=== PATIENT | male | born 1970 | race Caucasian/White ===

== ENCOUNTER 2017-12-20 15:52 | Emergency (ER) | payer MEDICAID ==
[2017-12-20] MEDS ORDERED: Sodium Chloride 0.9% 10 ML Syringe FLUSH PRN (16:15)
[2017-12-20] MEDS ORDERED: Aspirin 81 MG Tab.Chew PO ONE (16:15)
--- NOTE | 2017-12-20 16:28 | EDM.PDOC ---
ED HPI GENERAL MEDICAL PROBLEM - General Chief Complaint: Cardiovascular Problem Stated Complaint: PAIN IN CHEST Time Seen by Provider: 12/20/17 16:03 Source of Information: Reports: Patient, Family History Limitations: Reports: No Limitations - History of Present Illness INITIAL COMMENTS - FREE TEXT/NARRATIVE: 47-year-old male presents for evaluation treatment of chest pain. Patient reports pain has been intermittent for the last 3 weeks. No pain currently. He reports associated symptoms of shortness of breath. No nausea or vomiting. No pain radiating to his neck, back or arms. Reports pain is most often present while sitting and resting but is present with activity as well. Reports he is on limited activity due to his TBI. Patient has a past medical history of a TBI. Has difficulty staying on task and answer questions. He reports that he has had significant pain with headaches and is currently trying to get into [place] for problems with his chronic headaches. Patient reports a fell about 2 or 3 weeks ago. He has been having pain to his right foot and his right hand. He would like these evaluated. Primary care provider is Dr. Acosta. Patient smokes 1/2 a pack per day. Duration: Week(s): (3) - Related Data Allergies Allergy/AdvReac Type Severity Reaction Status Date / Time celecoxib Allergy Hives Verified 12/20/17 16:21 gabapentin Allergy Seizure Verified 12/20/17 16:21 insect venom Allergy Hives Verified 12/20/17 16:21 NSAIDS (Non-Steroidal Allergy Hives Verified 12/20/17 16:21 Anti-Inflamma Penicillins Allergy Hives Verified 12/20/17 16:21 pregabalin [From Lyrica] Allergy Hives Verified 12/20/17 16:21 tramadol Allergy Hives Verified 12/20/17 16:21 zolpidem Allergy Hives Verified 12/20/17 16:21 Home Meds: Home Meds ClonazePAM [KlonoPIN] 1 mg PO TID 12/19/14 [History] Ondansetron [Zofran] 4 mg PO Q6HR PRN 12/19/14 [History] Eszopiclone [Lunesta] 3 mg PO BEDTIME 09/30/15 [History] Pantoprazole Sodium [Protonix] 40 mg PO BID #60 tablet. 05/04/16 [Rx] Sucralfate [Carafate] 1 gm PO QIDACANDBED #120 tablet 05/04/16 [Rx] Carvedilol 6.25 mg PO BID 12/20/17 [History] DULoxetine [Cymbalta] 60 mg PO DAILY 12/20/17 [History] Diclofenac Sodium [Voltaren 0.1% Ophth Soln] 2 - 4 gm TOP QID PRN 12/20/17 [ History] Fluticasone Furoate [Arnuity Ellipta] 1 spray NINOSKA BID 12/20/17 [History] Polyethylene Glycol [Polyox Wsr-301] 1 dose PO DAILY 12/20/17 [History] atorvaSTATin [Lipitor] 20 mg PO DAILY 12/20/17 [History] carBAMazepine [TEGretol XR] 400 mg PO BID 12/20/17 [History] lamoTRIgine [Lamotrigine] 150 mg PO BID 12/20/17 [History] Past Medical History HEENT History: Reports: Allergic Rhinitis, Other (See Below) Other HEENT History: abcessed tooth Cardiovascular History: Reports: Heart Murmur Respiratory History: Reports: Other (See Below) Other Respiratory History: bilateral pleural effusions Gastrointestinal History: Reports: Other (See Below) Other Gastrointestinal History: rectal bleeding, gastric ulcer, tubular adenoma , splenic abcess, LUQ pain Genitourinary History: Reports: None Other Genitourinary History: urinary frequency 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 Musculoskeletal History: Reports: Other (See Below) Other Musculoskeletal History: wrist pain, degenerative TFCC tear, Right upper extremity ulnar neuropathy Neurological History: Reports: Brain Injury, Concussion, CVA, Head Trauma, Seizure Psychiatric History: Reports: Anxiety, Depression Endocrine/Metabolic History: Reports: Other (See Below) Other Endocrine/Metabolic History: metabolic syndrome Hematologic History: Reports: Anemia, Iron Deficiency Immunologic History: Reports: None Oncologic (Cancer) History: Reports: None Dermatologic History: Reports: None - Past Surgical History Head Surgeries/Procedures: Reports: None HEENT Surgical History: Reports: Adenoidectomy, LASIK, Oral Surgery, Tonsillectomy Respiratory Surgical History: Reports: Thoracentesis, Thoracotomy, Other (See Below) GI Surgical History: Reports: Bariatric Procedure, Colonoscopy, EGD, Hernia Repair/Other Social & Family History - Tobacco Use Smoking Status *Q: Current Every Day Smoker Years of Tobacco use: 30 Packs/Tins Daily: 0.5 - Caffeine Use Caffeine Use: Reports: Soda, Tea - Recreational Drug Use Recreational Drug Use: No ED ROS GENERAL - Review of Systems Review Of Systems: See Below Constitutional: Reports: Weight Gain (unintentional per mother, gained 40-50 lbs since starting a new heart medication). Denies: Fever, Chills Respiratory: Reports: Shortness of Breath (non currently) Cardiovascular: Reports: Chest Pain (none currently, intermittent over the last 3 weeks) GI/Abdominal: Denies: Nausea, Vomiting Musculoskeletal: Reports: Hand Pain (right), Foot Pain (right) Neurological: Reports: Headache (chronic) ED EXAM, GENERAL - Physical Exam Exam: See Below Exam Limited By: No Limitations General Appearance: Alert, WD/WN, No Apparent Distress Nose: Normal Inspection Throat/Mouth: Normal Inspection, Normal Voice, No Airway Compromise Neck: Normal Inspection Respiratory/Chest: No Respiratory Distress, Lungs Clear, Normal Breath Sounds Cardiovascular: Normal Peripheral Pulses, Regular Rate, Rhythm, No Murmur Neurological: Alert, Oriented, Normal Cognition Psychiatric: Other (tangental) Skin Exam: Warm, Dry, Normal Color EKG INTERPRETATION EKG Date: 12/20/17 Time: 15:40 Rhythm: NSR Rate (Beats/Min): 61 [place]: Normal P-Wave: Present QRS: Normal ST-T: Normal QT: Normal EKG Interpretation Comments: Normal sinus rhythm at 61 bpm. No ischemic changes, but early R-wave progression. No left axis deviation. No left ventricular hypertrophy. No interventricular conduction delays. QTc within normal limits a QTc of 421. Reviewed by myself and Dr. Rojas. Course - Vital Signs Last Recorded V/S: Last Vital Signs Temp 98 F 12/20/17 15:58 Pulse 65 12/20/17 18:15 Resp 17 12/20/17 18:15 BP 143/100 H 12/20/17 18:15 Pulse Ox 96 12/20/17 18:15 - Orders/Labs/Meds Orders: Active Orders 24 hr Category Date Time Status Cardiac Monitoring [RC] . DIRECTED Care 12/20/17 16:15 Active EKG 12 Lead [EKG Documentation Completion] [RC] STAT Care 12/20/17 16:12 Active Peripheral IV Care [RC] . DIRECTED Care 12/20/17 16:15 Active Peripheral IV Insertion Adult [OM.PC] Routine Oth 12/20/17 16:15 Ordered Labs: Laboratory Tests 12/20/17 12/20/17 12/20/17 Range/Units 16:30 16:30 16:30 WBC 6.98 (4.23-9.07) K/mm3 RBC 4.39 L (4.63-6.08) M/mm3 Hgb 13.2 L (13.7-17.5) gm/L Hct 39.2 L (40.1-51.0) % MCV 89.3 (79.0-92.2) fl MCH 30.1 (25.7-32.2) pg MCHC 33.7 (32.2-35.5) g/dl RDW Std Deviation 40.5 (35.1-43.9) fL Plt Count 292 (163-337) K/mm3 MPV 9.1 L (9.4-12.3) fl Neut % (Auto) 55.7 (34.0-67.9) % Lymph % (Auto) 31.4 (21.8-53.1) % [place] % (Auto) 8.9 (5.3-12.2) % Eos % (Auto) 3.6 (0.8-7.0) Baso % (Auto) 0.3 (0.1-1.2) % Neut # (Auto) 3.89 (1.78-5.38) K/mm3 Lymph # (Auto) 2.19 (1.32-3.57) K/mm3 [place] # (Auto) 0.62 (0.30-0.82) K/mm3 Eos # (Auto) 0.25 (0.04-0.54) K/mm3 Baso # (Auto) 0.02 (0.01-0.08) K/mm3 PT 12.6 H (9.5-12.1) SECONDS INR 1.16 APTT 27 (24-31) SECONDS D-Dimer, Quantitative 0.23 (0.19-0.50) mg/L Sodium 138 (136-145) mEq/L Potassium 3.2 L (3.5-5.1) mEq/L Chloride 103 (98-107) mEq/L Carbon Dioxide 28 (21-32) mEq/L Anion Gap 10.2 (5-15) BUN 8 (7-18) mg/dL Creatinine 0.8 (0.7-1.3) mg/dL Est Cr Clr Drug Dosing TNP Estimated GFR (MDRD) > 60 (>60) mL/min BUN/Creatinine Ratio 10.0 L (14-18) Glucose 93 (74-106) mg/dL Calcium 8.3 L (8.5-10.1) mg/dL Total Bilirubin 0.2 (0.2-1.0) mg/dL AST 13 L (15-37) U/L ALT 16 (16-63) U/L Alkaline Phosphatase 67 (46-116) U/L CK-MB (CK-2) 0.7 (0-3.6) ng/ml Troponin I < 0.017 (0.00-0.056) ng/mL Total Protein 6.9 (6.4-8.2) g/dl Albumin 3.7 (3.4-5.0) g/dl Globulin 3.2 gm/dL Albumin/Globulin Ratio 1.2 (1-2) Meds: Medications Discontinued Medications Generic Name Dose Route Start Last Admin Trade Name Freq PRN Reason Stop Dose Admin Aspirin 324 mg 12/20/17 16:15 12/20/17 16:32 Aspirin PO 12/20/17 16:16 324 mg ONETIME ONE Administration Sodium Chloride 10 ml 12/20/17 16:15 12/20/17 16:33 Saline Flush FLUSH 10 ml ASDIRECTED PRN Administration Keep Vein Open - Radiology Interpretation Free Text/Narrative:: Right hand: 4 views of the right hand were obtained. Comparison: No prior hand study. Joint spaces are preserved. No fracture, dislocation or other bony abnormality is seen. Impression: 1. No abnormality is appreciated on 4 view right hand exam. Right foot: 4 views of the right foot were obtained. Comparison: No prior right foot study. No fracture, dislocation or other bony abnormality is seen. Impression: 1. No abnormality is identified on right foot exam. Chest: 2 views of the chest are obtained. Comparison: Prior chest x-ray of 09/30/15. Atelectasis is noted within the left base. Lungs otherwise are clear. Heart size and mediastinum are within normal limits. Slight tortuosity of the thoracic aorta is seen. Bony structures appear within normal limits for the patient's age. Impression: 1. Incidental findings. Nothing acute is appreciated. - Re-Assessments/Exams Free Text/Narrative Re-Assessment/Exam: 12/20/17 18:05 Reviewed the labs, EKG and imaging with the patient. He has had no pain since coming to the ER. I do recommend follow-up with his primary care provider within 2 weeks for recheck of his symptoms. Discharge instructions as documented. Departure - Departure Time of Disposition: 18:05 Disposition: Home, Self-Care 01 Condition: Fair Clinical Impression: Chest wall pain, Foot pain, right, Fall, Thumb sprain Instructions: Chest Wall Pain, [id number] Referrals: Dioni Acosta MD [Primary Care Provider] - Forms: ED Department Discharge Additional Instructions: [id number] Tylenol as needed for discomfort. May use ice or heat to the sore areas for additional pain relief. Follow up with her primary care provider within 2 weeks for recheck of your symptoms. Please return to the ER if your symptoms change or worsen. - My Orders Last 24 Hours: My Active Orders 12/20/17 16:12 EKG 12 Lead [EKG Documentation Completion] [RC] STAT 12/20/17 16:15 Cardiac Monitoring [RC] . DIRECTED Peripheral IV Care [RC] . DIRECTED Peripheral IV Insertion Adult [OM.PC] Routine - Assessment/Plan Last 24 Hours: My Active Orders 12/20/17 16:12 EKG 12 Lead [EKG Documentation Completion] [RC] STAT 12/20/17 16:15 Cardiac Monitoring [RC] . DIRECTED Peripheral IV Care [RC] . DIRECTED Peripheral IV Insertion Adult [OM.PC] Routine
[2017-12-20 18:24] VITALS: BP 143/100
--- NOTE | 2017-12-21 08:41 | CR ---
Chest: Two views of the chest are obtained. Comparison: Prior chest x-ray of 09/30/15. Atelectasis is noted within the left base. Lungs otherwise are clear. Heart size and mediastinum are within normal limits. Slight tortuosity of the thoracic aorta is seen. Bony structures appear within normal limits for the patient's age. Impression: 1. Incidental findings. Nothing acute is appreciated. Diagnostic code #2
--- NOTE | 2017-12-21 08:41 | CR ---
Right hand: Four views of the right hand were obtained. Comparison: No prior hand study. Joint spaces are preserved. No fracture, dislocation or other bony abnormality is seen. Impression: 1. No abnormality is appreciated on four-view right hand exam. Diagnostic code #1
--- NOTE | 2017-12-21 08:41 | CR ---
Right foot: Four views of the right foot were obtained. Comparison: No prior right foot study. No fracture, dislocation or other bony abnormality is seen. Impression: 1. No abnormality is identified on right foot exam. Diagnostic code #1
== END 2017-12-20 18:20 | disposition home or self-care (01) ==
LOC: JD.ED 15:52
DX: S63.601A Unspecified sprain of right thumb, initial encounter (principal); R07.89 Other chest pain; M79.671 Pain in right foot; F17.210 Nicotine dependence, cigarettes, uncomplicated; Z88.0 Allergy status to penicillin; Z88.8 Allergy status to other drugs, medicaments and biological substances; Z88.1 Allergy status to other antibiotic agents; W19.XXXA Unspecified fall, initial encounter
CPT/HCPCS: 36415; 71046; 73130; 73630; 80053; 82553; 84484; 85025; 85379; 85610; 85730; 93005; 99285; A9270; J7050

== ENCOUNTER 2018-05-23 05:11 | Inpatient (IN) | payer MEDICARE, OTHER, MEDICAID ==
[2018-05-23] MEDS ORDERED: Sodium Chloride 0.9% 10 ML Syringe FLUSH PRN (05:46)
[2018-05-23] MEDS ORDERED: Ondansetron 4 MG/2 ML SDV IVPUSH ONE (05:47)
[2018-05-23] MEDS ORDERED: HYDROmorphone 1 MG/ML Syringe IVPUSH ONE ×3 (05:47→10:46)
[2018-05-23] MEDS ORDERED: Sodium Chloride 0.9% 1,000 ML IV SCH (06:00)
--- NOTE | 2018-05-23 06:20 | EDM.PDOC ---
<Brian Parada Ifeanyi - Last Filed: 05/23/18 08:19> ED HPI GENERAL MEDICAL PROBLEM - General Chief Complaint: Flank Pain Stated Complaint: kidney stone Time Seen by Provider: 05/23/18 05:37 Source of Information: Reports: Patient, RN Notes Reviewed - History of Present Illness INITIAL COMMENTS - FREE TEXT/NARRATIVE: 47-year-old male comes in with low back discomfort he states this is primarily right low back with some radiation to the right flank and groin. So has had some discomfort left low back but not as severe. Said intermittent nausea and vomiting for the past 4 days. The nausea is worse now this morning with the back discomfort. Dates he "feels dehydrated". His been voiding only very small amounts since last evening. No fever or chills. No cough chest pain or difficulty breathing. Right Lower Back Pain Score (Numeric/FACES): 8 - Related Data Allergies Allergy/AdvReac Type Severity Reaction Status Date / Time celecoxib Allergy Hives Verified 05/23/18 05:25 insect venom Allergy Hives Verified 05/23/18 05:25 NSAIDS (Non-Steroidal Allergy Hives Verified 05/23/18 05:25 Anti-Inflamma Penicillins Allergy Hives Verified 05/23/18 05:25 pregabalin [From Lyrica] Allergy Hives Verified 05/23/18 05:25 tramadol Allergy Hives Verified 05/23/18 05:25 zolpidem Allergy Hives Verified 05/23/18 05:25 gabapentin AdvReac Seizure Verified 05/23/18 12:35 Home Meds: Home Meds Eszopiclone [Lunesta] 3 mg PO BEDTIME 09/30/15 [History] Pantoprazole Sodium [Protonix] 40 mg PO BID #60 tablet. 05/04/16 [Rx] Carvedilol 6.25 mg PO BID 12/20/17 [History] DULoxetine [Cymbalta] 60 mg PO QAM 12/20/17 [History] atorvaSTATin [Lipitor] 20 mg PO DAILY 12/20/17 [History] carBAMazepine [TEGretol XR] 400 mg PO BID 12/20/17 [History] lamoTRIgine [Lamotrigine] 100 mg PO BID 12/20/17 [History] Sucralfate [Carafate] 1 gm PO QID 01/20/18 [History] acetaZOLAMIDE [Acetazolamide] 375 mg PO BID 01/20/18 [History] DULoxetine [Cymbalta] 30 mg PO QPM 05/23/18 [History] busPIRone [Buspar] 10 mg PO BID 05/23/18 [History] Past Medical History HEENT History: Reports: Allergic Rhinitis, Other (See Below) Other HEENT History: abcessed tooth Cardiovascular History: Reports: Heart Murmur Respiratory History: Reports: Other (See Below) Other Respiratory History: bilateral pleural effusions Gastrointestinal History: Reports: Other (See Below) Other Gastrointestinal History: rectal bleeding, gastric ulcer, tubular adenoma , splenic abcess, LUQ pain Genitourinary History: Reports: None Other Genitourinary History: urinary frequency 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 Musculoskeletal History: Reports: Other (See Below) Other Musculoskeletal History: wrist pain, degenerative TFCC tear, Right upper extremity ulnar neuropathy Neurological History: Reports: Brain Injury, Concussion, CVA, Head Trauma, Seizure Psychiatric History: Reports: Anxiety, Depression Endocrine/Metabolic History: Reports: Other (See Below) Other Endocrine/Metabolic History: metabolic syndrome Hematologic History: Reports: Anemia, Iron Deficiency Immunologic History: Reports: None Oncologic (Cancer) History: Reports: None Dermatologic History: Reports: None - Past Surgical History Head Surgeries/Procedures: Reports: None HEENT Surgical History: Reports: Adenoidectomy, LASIK, Oral Surgery, Tonsillectomy Respiratory Surgical History: Reports: Thoracentesis, Thoracotomy, Other (See Below) GI Surgical History: Reports: Bariatric Procedure, Colonoscopy, EGD, Hernia Repair/Other Social & Family History - Family History Family Medical History: Noncontributory - Tobacco Use Smoking Status *Q: Current Every Day Smoker Years of Tobacco use: 25 Packs/Tins Daily: 0.7 - Caffeine Use Caffeine Use: Reports: Soda - Recreational Drug Use Recreational Drug Use: No ED ROS GENERAL - Review of Systems Review Of Systems: See Below Constitutional: Denies: Fever, Chills, Diaphoresis HEENT: Denies: Throat Pain Respiratory: Denies: Shortness of Breath, Pleuritic Chest Pain Cardiovascular: Denies: Chest Pain GI/Abdominal: Reports: Nausea, Vomiting. Denies: Abdominal Pain, Diarrhea : Denies: Hematuria Musculoskeletal: Reports: Back Pain Skin: Denies: Rash Neurological: Reports: No Symptoms ED EXAM,LOWER BACK PAIN/INJURY - Physical Exam Exam: See Below General Appearance: Alert, Moderate Distress Eye Exam: Bilateral Eye: PERRL Throat/Mouth: Normal Inspection, Other (Oral mucosa is dry) Head: Atraumatic Neck: Supple, Full Range of Motion Respiratory/Chest: No Respiratory Distress, Lungs Clear, Normal Breath Sounds Cardiovascular: Regular Rate, Rhythm GI/Abdominal: Soft, Non-Tender Back Exam: Other (There is mild tenderness right low back, back otherwise nontender). No: Vertebral Tenderness Extremities: Normal Inspection. No: Pedal Edema, Leg Pain Neurological: Alert, No Motor/Sensory Deficits Skin Exam: Warm, Dry, Normal Color Course - Vital Signs Last Recorded V/S: Last Vital Signs Temp 36.1 C 05/23/18 05:21 Pulse 64 05/23/18 05:21 Resp 16 05/23/18 05:21 BP 111/64 05/23/18 05:21 Pulse Ox 97 05/23/18 05:21 - Orders/Labs/Meds Orders: Active Orders 24 hr Category Date Time Status Patient Status [ADT] Routine ADT 05/23/18 11:51 Active Antiembolic Devices [RC] PER UNIT ROUTINE Care 05/23/18 11:53 Active Intake and Output [RC] QSHIFT Care 05/23/18 11:52 Active Oxygen Therapy [RC] PRN Care 05/23/18 11:51 Active Peripheral IV Care [RC] . DIRECTED Care 05/23/18 05:47 Active Up ad Deneen [RC] ASDIRECTED Care 05/23/18 11:51 Active VTE/DVT Education [RC] PER UNIT ROUTINE Care 05/23/18 11:51 Active Vital Signs [RC] Q4H Care 05/23/18 11:51 Active Nothing per Oral Now Diet [DIET] Diet 05/23/18 Lunch Active Carvedilol [Coreg] Med 05/23/18 21:00 Pending 6.25 mg PO BID DULoxetine Med 05/24/18 08:00 Ordered 60 mg PO QAM DULoxetine [Cymbalta] Med 05/23/18 18:00 Ordered 30 mg PO QPM HYDROmorphone [Dilaudid] Med 05/23/18 11:53 Active 0.2 - 0.6 mg IVPUSH Q2H PRN Ondansetron [Zofran] Med 05/23/18 11:58 Active 4 mg IVPUSH Q8H PRN Pantoprazole [ProTONIX] Med 05/23/18 21:00 Active 40 mg PO BID Piperacillin/Tazobactam [Piperacil-Tazobact] 4.5 gm Med 05/23/18 11:00 Active Sodium Chloride 0.9% [Normal Saline] 100 ml IV Q8H Sodium Chloride 0.9% [Saline Flush] Med 05/23/18 05:46 Active 10 ml FLUSH ASDIRECTED PRN carBAMazepine Med 05/23/18 21:00 Ordered 400 mg PO BID lamoTRIgine [Lamotrigine] Med 05/23/18 21:00 Ordered 100 mg PO BID Peripheral IV Insertion Adult [OM.PC] Stat Oth 05/23/18 05:47 Ordered Sequential Compression Device [OM.PC] Per Unit Routine Oth 05/23/18 11:52 Ordered Resuscitation Status Routine Resus Stat 05/23/18 11:51 Ordered Medication Orders Carvedilol (Coreg) 6.25 mg PO BID DAVID Duloxetine HCl (Cymbalta) 30 mg PO QPM DAVID Hydromorphone HCl (Dilaudid) 0.2 - 0.6 mg IVPUSH Q2H PRN PRN Reason: Pain Piperacillin Sod/Tazobactam (Sod 4.5 gm/ Sodium Chloride) 100 mls @ 25 mls/hr IV Q8H DAVID Last Admin: 05/23/18 11:21 Dose: 25 mls/hr Non-Formulary Medication (Carbamazepine) 400 mg PO BID DAVID Non-Formulary Medication (Duloxetine) 60 mg PO QAM DAVID Non-Formulary Medication (Lamotrigine [Lamotrigine]) 100 mg PO BID DAVID Ondansetron HCl (Zofran) 4 mg IVPUSH Q8H PRN PRN Reason: Nausea Pantoprazole Sodium (Protonix) 40 mg PO BID DAVID Sodium Chloride (Saline Flush) 10 ml FLUSH ASDIRECTED PRN PRN Reason: Keep Vein Open Last Admin: 05/23/18 06:25 Dose: 10 ml Labs: Laboratory Tests 05/23/18 05/23/18 05/23/18 Range/Units 06:35 06:35 06:39 WBC 17.59 H (4.23-9.07) K/mm3 RBC 4.33 L (4.63-6.08) M/mm3 Hgb 13.4 L (13.7-17.5) gm/L Hct 39.5 L (40.1-51.0) % MCV 91.2 (79.0-92.2) fl MCH 30.9 (25.7-32.2) pg MCHC 33.9 (32.2-35.5) g/dl RDW Std Deviation 43.0 (35.1-43.9) fL Plt Count 231 (163-337) K/mm3 MPV 9.1 L (9.4-12.3) fl Neut % (Auto) 84.1 H (34.0-67.9) % Lymph % (Auto) 3.5 L (21.8-53.1) % Granite % (Auto) 12.0 (5.3-12.2) % Eos % (Auto) 0 L (0.8-7.0) Baso % (Auto) 0.1 (0.1-1.2) % Neut # (Auto) 14.79 H (1.78-5.38) K/mm3 Lymph # (Auto) 0.62 L (1.32-3.57) K/mm3 Granite # (Auto) 2.11 H (0.30-0.82) K/mm3 Eos # (Auto) 0.00 L (0.04-0.54) K/mm3 Baso # (Auto) 0.01 (0.01-0.08) K/mm3 Manual Slide Review Abnormal smear Sodium (136-145) mEq/L Potassium (3.5-5.1) mEq/L Chloride (98-107) mEq/L Carbon Dioxide (21-32) mEq/L Anion Gap (5-15) BUN (7-18) mg/dL Creatinine (0.7-1.3) mg/dL Est Cr Clr Drug Dosing mL/min Estimated GFR (MDRD) (>60) mL/min BUN/Creatinine Ratio (14-18) Glucose (74-106) mg/dL Calcium (8.5-10.1) mg/dL Total Bilirubin (0.2-1.0) mg/dL GGT 89 H (15-85) U/L AST (15-37) U/L ALT (16-63) U/L Alkaline Phosphatase (46-116) U/L C-Reactive Protein 4.1 H* (<1.0) mg/dL Total Protein (6.4-8.2) g/dl Albumin (3.4-5.0) g/dl Globulin gm/dL Albumin/Globulin Ratio (1-2) Urine Color (Yellow) Urine Appearance (Clear) Urine pH (5.0-8.0) Ur Specific [place] (1.005-1.030) Urine Protein (Negative) Urine Glucose (UA) (Negative) Urine Ketones (Negative) Urine Occult Blood (Negative) Urine Nitrite (Negative) Urine Bilirubin (Negative) Urine Urobilinogen (0.2-1.0) Ur Leukocyte Esterase (Negative) Urine RBC (0-5) /hpf Urine WBC (0-5) /hpf Ur Epithelial Cells (0-5) /hpf Ur Squamous Epith Cells (0-5) /hpf Urine Bacteria (FEW) /hpf Urine Mucus (FEW) /hpf 05/23/18 05/23/18 Range/Units 06:39 07:55 WBC (4.23-9.07) K/mm3 RBC (4.63-6.08) M/mm3 Hgb (13.7-17.5) gm/L Hct (40.1-51.0) % MCV (79.0-92.2) fl MCH (25.7-32.2) pg MCHC (32.2-35.5) g/dl RDW Std Deviation (35.1-43.9) fL Plt Count (163-337) K/mm3 MPV (9.4-12.3) fl Neut % (Auto) (34.0-67.9) % Lymph % (Auto) (21.8-53.1) % Granite % (Auto) (5.3-12.2) % Eos % (Auto) (0.8-7.0) Baso % (Auto) (0.1-1.2) % Neut # (Auto) (1.78-5.38) K/mm3 Lymph # (Auto) (1.32-3.57) K/mm3 Granite # (Auto) (0.30-0.82) K/mm3 Eos # (Auto) (0.04-0.54) K/mm3 Baso # (Auto) (0.01-0.08) K/mm3 Manual Slide Review Sodium 139 (136-145) mEq/L Potassium 2.8 L (3.5-5.1) mEq/L Chloride 104 (98-107) mEq/L Carbon Dioxide 21 (21-32) mEq/L Anion Gap 16.8 H (5-15) BUN 12 (7-18) mg/dL Creatinine 1.1 (0.7-1.3) mg/dL Est Cr Clr Drug Dosing 93.08 mL/min Estimated GFR (MDRD) > 60 (>60) mL/min BUN/Creatinine Ratio 10.9 L (14-18) Glucose 151 H (74-106) mg/dL Calcium 8.3 L (8.5-10.1) mg/dL Total Bilirubin 0.4 (0.2-1.0) mg/dL GGT (15-85) U/L AST 8 L (15-37) U/L ALT 12 L (16-63) U/L Alkaline Phosphatase 68 (46-116) U/L C-Reactive Protein (<1.0) mg/dL Total Protein 7.1 (6.4-8.2) g/dl Albumin 3.7 (3.4-5.0) g/dl Globulin 3.4 gm/dL Albumin/Globulin Ratio 1.1 (1-2) Urine Color Yellow (Yellow) Urine Appearance Clear (Clear) Urine pH 6.0 (5.0-8.0) Ur Specific [place] 1.025 (1.005-1.030) Urine Protein 2+ H (Negative) Urine Glucose (UA) Negative (Negative) Urine Ketones Trace H (Negative) Urine Occult Blood Negative (Negative) Urine Nitrite Negative (Negative) Urine Bilirubin 1+ H (Negative) Urine Urobilinogen 0.2 (0.2-1.0) Ur Leukocyte Esterase Negative (Negative) Urine RBC Not seen (0-5) /hpf Urine WBC Not seen (0-5) /hpf Ur Epithelial Cells Not seen (0-5) /hpf Ur Squamous Epith Cells 0-5 (0-5) /hpf Urine Bacteria Not seen (FEW) /hpf Urine Mucus Not seen (FEW) /hpf Meds: Medications Generic Name Dose Route Start Last Admin Trade Name Freq PRN Reason Stop Dose Admin Carvedilol 6.25 mg 05/23/18 21:00 Coreg PO BID DAVID Duloxetine HCl 30 mg 05/23/18 18:00 Cymbalta PO QPM DAVID Hydromorphone HCl 0.2 - 0.6 mg 05/23/18 11:53 Dilaudid IVPUSH Q2H PRN Pain Piperacillin Sod/Tazobactam 100 mls @ 25 mls/hr 05/23/18 11:00 05/23/18 11:21 Sod 4.5 gm/ Sodium Chloride IV 25 mls/hr Q8H DAVID Administration Non-Formulary Medication 400 mg 05/23/18 21:00 Carbamazepine PO BID DAVID Non-Formulary Medication 60 mg 05/24/18 08:00 Duloxetine PO QAM DAVID Non-Formulary Medication 100 mg 05/23/18 21:00 Lamotrigine [Lamotrigine] PO BID DAVID Ondansetron HCl 4 mg 05/23/18 11:58 Zofran IVPUSH Q8H PRN Nausea Pantoprazole Sodium 40 mg 05/23/18 21:00 Protonix PO BID DAVID Sodium Chloride 10 ml 05/23/18 05:46 05/23/18 06:25 Saline Flush FLUSH 10 ml ASDIRECTED PRN Administration Keep Vein Open Discontinued Medications Generic Name Dose Route Start Last Admin Trade Name Shun PRN Reason Stop Dose Admin Hydromorphone HCl 1 mg 05/23/18 05:47 05/23/18 06:21 Dilaudid IVPUSH 05/23/18 05:48 1 mg ONETIME ONE Administration Hydromorphone HCl 1 mg 05/23/18 08:00 05/23/18 08:43 Dilaudid IVPUSH 05/23/18 08:01 1 mg ONETIME ONE Administration Hydromorphone HCl 1 mg 05/23/18 10:46 05/23/18 10:57 Dilaudid IVPUSH 05/23/18 10:47 1 mg ONETIME ONE Administration Sodium Chloride 1,000 mls @ 999 mls/hr 05/23/18 06:00 05/23/18 06:23 Normal Saline IV 999 mls/hr ONETIME DAVID Administration Potassium Chloride 10 meq/ 100 mls @ 50 mls/hr 05/23/18 07:20 05/23/18 07:29 Premix IV 05/23/18 09:19 50 mls/hr ASDIRECTED ONE Administration Levofloxacin/Dextrose 750 mg/ 150 mls @ 100 mls/hr 05/23/18 10:47 05/23/18 11 :03 Premix IV 05/23/18 12:16 100 mls/hr ONETIME ONE Administration Potassium Chloride 10 meq/ 100 mls @ 100 mls/hr 05/23/18 11:08 05/23/18 11:19 Premix IV 05/23/18 12:07 100 mls/hr ONETIME ONE Administration Piperacillin Sod/Tazobactam 100 mls @ 25 mls/hr 05/23/18 19:00 Sod 4.5 gm/ Sodium Chloride IV Q8H DAVID Metoclopramide HCl 10 mg 05/23/18 10:46 05/23/18 10:54 Reglan IVPUSH 05/23/18 10:47 10 mg ONETIME ONE Administration Ondansetron HCl 4 mg 05/23/18 05:47 05/23/18 06:20 Zofran IVPUSH 05/23/18 05:48 4 mg ONETIME ONE Administration - Re-Assessments/Exams Free Text/Narrative Re-Assessment/Exam: 05/23/18 08:05 1 hr past change of shift, will transfer care to Dr Alcaraz. He did get good initial relief of pain after dilaudid 1 mg IV and zofran 4 mg IV. Now his back pain is coming back but also RUQ pain which he did not talk about on first arrival. He is very tender RUQ with a pos. [place] sign. He thought his nausea/vomiting was related to his prior gastric bypass but may well have GB disease. Have ordered ultrasound of gallbladder. The CT of abd/ pelvis does not show any sign of kidney stone, kidney problem or hydronephrosis. GB mildly dilated, wall slightly edematous. His last meal was last evening over 12 hours ago Departure - Departure Disposition: Admitted As Inpatient 68 Clinical Impression: Acute cholecystitis, Hypokalemia due to loss of potassium, Hypokalemia due to inadequate potassium intake Nausea and vomiting Qualifiers: Vomiting type: bilious vomiting Qualified Code(s): R11.14 - Bilious vomiting - Discharge Information Instructions: Cholecystitis, [id number] Referrals: Dioni Acosta MD [Primary Care Provider] - Forms: ED Department Discharge - My Orders Last 24 Hours: My Active Orders 05/23/18 11:00 Piperacillin/Tazobactam [Piperacil-Tazobact] 4.5 gm Sodium Chloride 0.9% [ Normal Saline] 100 ml IV Q8H - Assessment/Plan Last 24 Hours: My Active Orders 05/23/18 11:00 Piperacillin/Tazobactam [Piperacil-Tazobact] 4.5 gm Sodium Chloride 0.9% [ Normal Saline] 100 ml IV Q8H <Deon Alcaraz - Last Filed: 05/23/18 12:41> Course - Re-Assessments/Exams Free Text/Narrative Re-Assessment/Exam: 05/23/18 09:04 GGT came back at 89. CRP is slightly elevated at 4.1. 05/23/18 10:57 ultrasound of the gallbladder shows slightly dilated gallbladder with gallbladder wall thickening and mild pericholecystic fluid compatible with acute cholecystitis. Material is seen within the gallbladder showing no shadowing presumably due to sludge ball. No shadowing gallstones are identified. No biliary duct dilatation is seen findings as noted above are suggestive of acute acalculous cholecystitis. I spoke with Dr. 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 He asked that we start the patient on antibiotic Zosyn. Patient has a history of an allergy to penicillin apparently he developed hives greater than 12 years ago. However on further questioning he's been on amoxicillin on multiple occasions for dental infections since that time with no allergic response. Therefore will go ahead with IV Zosyn at this time. Patient is significant pain on reexamination right upper quadrant of the abdomen I will therefore repeat Dilaudid 1 mg IV with Reglan 10 mg IV for nausea relief. He will also require a second K rider and I will write an order for this as well. Departure - Departure Time of Disposition: 12:41 Condition: Fair - Discharge Information *PRESCRIPTION DRUG MONITORING PROGRAM REVIEWED*: Not Applicable *COPY OF PRESCRIPTION DRUG MONITORING REPORT IN PATIENT LES: Not Applicable - My Orders Last 24 Hours: My Active Orders 05/23/18 11:00 Piperacillin/Tazobactam [Piperacil-Tazobact] 4.5 gm Sodium Chloride 0.9% [ Normal Saline] 100 ml IV Q8H - Assessment/Plan Last 24 Hours: My Active Orders 05/23/18 11:00 Piperacillin/Tazobactam [Piperacil-Tazobact] 4.5 gm Sodium Chloride 0.9% [ Normal Saline] 100 ml IV Q8H
[2018-05-23] MEDS ORDERED: Potassium Chloride 10 MEQ in Premix Bag 1 BAG IV ONE ×2 (07:20→11:08)
--- NOTE | 2018-05-23 08:13 | CT ---
CT abdomen and pelvis Technique: Multiple axial sections were obtained from above the dome of the diaphragm inferiorly through the pubic symphysis. Intravenous and oral contrast not utilized. Study has been performed as a ureteral stone protocol. Comparison: Prior CT abdomen and pelvis exam of 10/26/11. Findings: Gallbladder is slightly dilated. Possible gallbladder wall edema is noted. No calcified gallstones are seen. Kidneys show no abnormal calcifications. No ureteral dilatation or ureteral stone is seen. Slight atelectasis and scarring is noted within both lung bases. Noncontrast appearance of the liver and spleen shows no discrete abnormality. Previous stomach surgery is noted. Adrenal glands show no nodule. Pancreas appears within normal limits. Aorta shows no aneurysm. Previous small bowel surgery is noted with anastomotic sutures being seen within the right upper abdomen. No retroperitoneal adenopathy or mesenteric abnormalities are seen. Several surgical clips are seen within the anterior abdominal wall and several surgical clips also seen within the anterior subcutaneous fat. No pelvic mass or adenopathy is seen. No free fluid or inflammatory change is seen. Bone window settings were reviewed which appear within normal limits for the patient's age. Impression: 1. Slightly dilated gallbladder with possible gallbladder wall edema. Gallbladder ultrasound could be obtained to further evaluate. 2. No renal calculi, ureteral dilatation or ureteral stone is seen. 3. Evidence of previous abdominal surgery. Other incidental findings. Diagnostic code #3
[2018-05-23] MEDS ORDERED: Metoclopramide 10 MG/2 ML SDV IVPUSH ONE (10:46)
[2018-05-23] MEDS ORDERED: Levofloxacin/Dextrose 5%-Water 750 MG in Premix Bag 1 BAG IV ONE (10:47)
--- NOTE | 2018-05-23 10:54 | US ---
Limited abdominal ultrasound: Multiple real-time images of the upper right abdomen were obtained. Comparison: Previous CT abdomen and pelvis exam performed earlier on the same day (7:33 AM). Liver shows no focal abnormality. Gallbladder is somewhat dilated. Gallbladder wall is thickened with mild amount of pericholecystic fluid. Sludge ball appears to be present within the gallbladder. No shadowing gallstones are seen. Right kidney shows no hydronephrosis or mass. Right kidney is length 12.7 cm. No biliary duct dilatation is seen. Pancreas is obscured from bowel gas. Portal vein shows normal hepatopedal flow. Impression: 1. Slightly dilated gallbladder with gallbladder wall thickening and mild pericholecystic fluid. Material is seen within the gallbladder showing no shadowing presumably due to sludge ball. No shadowing gallstones are seen. No biliary duct dilatation is seen. Findings as noted above could represent acalculous cholecystitis. 2. Nonvisualized pancreas due to bowel gas. Other portions of the right upper quadrant abdominal ultrasound are unremarkable. Diagnostic code #3
[2018-05-23] MEDS: Piperacillin/Tazobactam 4.5 GM in Sodium Chloride 0.9% 100 ML IV SCH ×2 (11:21→18:03)
--- NOTE | 2018-05-23 11:50 | PCM.HP ---
H&P History of Present Illness - General Date of Service: 05/23/18 Source of Information: Patient, Family - History of Present Illness Initial Comments - Free Text/Narative: 47 yo male, presented to the ED with worsening RUQ abdominal, which radiated to his back. Patient notes the pain started last night, and has gotten progressively worse, associated with nausea. No association with food. No prior episodes of pain. Denies acholic stools, tea-colored urine, and yellowing of skin/eyes. Patient's mother was present with the patient, who helped also provide patient' s history. Right Lower Back Pain Score (Numeric/FACES): 8 Right Abdominal Pain Score (Numeric/FACES): 8 - Related Data Allergies/Adverse Reactions: Allergies Allergy/AdvReac Type Severity Reaction Status Date / Time celecoxib Allergy Hives Verified 05/23/18 05:25 insect venom Allergy Hives Verified 05/23/18 05:25 NSAIDS (Non-Steroidal Allergy Hives Verified 05/23/18 05:25 Anti-Inflamma Penicillins Allergy Hives Verified 05/23/18 05:25 pregabalin [From Lyrica] Allergy Hives Verified 05/23/18 05:25 tramadol Allergy Hives Verified 05/23/18 05:25 zolpidem Allergy Hives Verified 05/23/18 05:25 gabapentin AdvReac Seizure Verified 05/23/18 12:35 Home Medications: Home Meds Eszopiclone [Lunesta] 3 mg PO BEDTIME 09/30/15 [History] Pantoprazole Sodium [Protonix] 40 mg PO BID #60 tablet. 05/04/16 [Rx] Carvedilol 6.25 mg PO BIDMEALS 12/20/17 [History] DULoxetine [Cymbalta] 60 mg PO QAM 12/20/17 [History] atorvaSTATin [Lipitor] 20 mg PO DAILY 12/20/17 [History] carBAMazepine [TEGretol XR] 400 mg PO BID 12/20/17 [History] lamoTRIgine [Lamotrigine] 150 mg PO BID 12/20/17 [History] Sucralfate [Carafate] 1 gm PO QIDACANDBED 01/20/18 [History] acetaZOLAMIDE [Acetazolamide] 375 mg PO BID 01/20/18 [History] Acetaminophen [Tylenol] 325 mg PO Q6H PRN 05/23/18 [History] DULoxetine [Cymbalta] 30 mg PO QPM 05/23/18 [History] Diclofenac Sodium [Voltaren 1% Gel] 2 - 4 gm TOP QID PRN 05/23/18 [History] EPINEPHrine [Epipen 2-Sharath] 1 pen IM ASDIRECTED PRN 05/23/18 [History] Fluticasone Propionate [Flonase] 1 spray NASBOTH BID 05/23/18 [History] Ondansetron [Zofran] 4 mg PO Q6H PRN 05/23/18 [History] Polyethylene Glycol 3350 [MiraLAX] 1 tbsp PO DAILY PRN 05/23/18 [History] busPIRone [Buspar] 10 mg PO BID 05/23/18 [History] Past Medical History HEENT History: Reports: Allergic Rhinitis, Other (See Below) Other HEENT History: abcessed tooth Cardiovascular History: Reports: Heart Murmur Respiratory History: Reports: Other (See Below) Other Respiratory History: bilateral pleural effusions Gastrointestinal History: Reports: Other (See Below) Other Gastrointestinal History: rectal bleeding, gastric ulcer, tubular adenoma , splenic abcess, LUQ pain Genitourinary History: Reports: None Other Genitourinary History: urinary frequency [employer] WORK[employer] History: Reports: None Musculoskeletal History: Reports: Other (See Below) Other Musculoskeletal History: wrist pain, degenerative TFCC tear, Right upper extremity ulnar neuropathy Neurological History: Reports: Brain Injury, Concussion, CVA, Head Trauma, Seizure Psychiatric History: Reports: Anxiety, Depression Endocrine/Metabolic History: Reports: Other (See Below) Other Endocrine/Metabolic History: metabolic syndrome Hematologic History: Reports: Anemia, Iron Deficiency Immunologic History: Reports: None Oncologic (Cancer) History: Reports: None Dermatologic History: Reports: None - Past Surgical History Head Surgeries/Procedures: Reports: None HEENT Surgical History: Reports: Adenoidectomy, LASIK, Oral Surgery, Tonsillectomy Respiratory Surgical History: Reports: Thoracentesis, Thoracotomy, Other (See Below) GI Surgical History: Reports: Bariatric Procedure (Gastric bypass (performed 15 years ago)), Colonoscopy, EGD (Last EGD in 2017 identified a marginal ulcer), Hernia Repair/Other - History Comment History Comment: History of TBI in 2016, on anti-seizure medication. Social & Family History - Family History Family Medical History: Noncontributory - Tobacco Use Smoking Status *Q: Current Every Day Smoker Years of Tobacco use: 25 Packs/Tins Daily: 0.7 - Caffeine Use Caffeine Use: Reports: Soda - Recreational Drug Use Recreational Drug Use: No H&P Review of Systems - Review of Systems: Review Of Systems: ROS reveals no pertinent complaints other than HPI. Exam - Exam Exam: See Below - Vital Signs Vital Signs: Last Vital Signs Temp 36.1 C 05/23/18 05:21 Pulse 64 05/23/18 05:21 Resp 16 05/23/18 05:21 BP 111/64 05/23/18 05:21 Pulse Ox 97 05/23/18 05:21 Weight: 108.862 kg - Exam General: Alert, Oriented, Cooperative HEENT: Conjunctiva Clear. No: Scleral Icterus Neck: Supple Lungs: Clear to Auscultation, Normal Respiratory Effort Cardiovascular: Regular Rate, Regular Rhythm, Normal S1, Normal S2 GI/Abdominal Exam: Soft, Tender (RUQ), Other (Fritz's sign negative) Skin: Warm, Dry, Intact, Other (No jaundice) Neuro Extensive - Mental Status: Alert, Oriented x3, Normal Mood/Affect - Patient Data Lab Results Last 24 hrs: Laboratory Results - last 24 hr 05/23/18 05/23/18 05/23/18 Range/Units 06:35 06:35 06:39 WBC 17.59 H (4.23-9.07) K/mm3 RBC 4.33 L (4.63-6.08) M/mm3 Hgb 13.4 L (13.7-17.5) gm/L Hct 39.5 L (40.1-51.0) % MCV 91.2 (79.0-92.2) fl MCH 30.9 (25.7-32.2) pg MCHC 33.9 (32.2-35.5) g/dl RDW Std Deviation 43.0 (35.1-43.9) fL Plt Count 231 (163-337) K/mm3 MPV 9.1 L (9.4-12.3) fl Neut % (Auto) 84.1 H (34.0-67.9) % Lymph % (Auto) 3.5 L (21.8-53.1) % Craig % (Auto) 12.0 (5.3-12.2) % Eos % (Auto) 0 L (0.8-7.0) Baso % (Auto) 0.1 (0.1-1.2) % Neut # (Auto) 14.79 H (1.78-5.38) K/mm3 Lymph # (Auto) 0.62 L (1.32-3.57) K/mm3 Craig # (Auto) 2.11 H (0.30-0.82) K/mm3 Eos # (Auto) 0.00 L (0.04-0.54) K/mm3 Baso # (Auto) 0.01 (0.01-0.08) K/mm3 Manual Slide Review Abnormal smear Sodium (136-145) mEq/L Potassium (3.5-5.1) mEq/L Chloride (98-107) mEq/L Carbon Dioxide (21-32) mEq/L Anion Gap (5-15) BUN (7-18) mg/dL Creatinine (0.7-1.3) mg/dL Est Cr Clr Drug Dosing mL/min Estimated GFR (MDRD) (>60) mL/min BUN/Creatinine Ratio (14-18) Glucose (74-106) mg/dL Calcium (8.5-10.1) mg/dL Total Bilirubin (0.2-1.0) mg/dL GGT 89 H (15-85) U/L AST (15-37) U/L ALT (16-63) U/L Alkaline Phosphatase (46-116) U/L C-Reactive Protein 4.1 H* (<1.0) mg/dL Total Protein (6.4-8.2) g/dl Albumin (3.4-5.0) g/dl Globulin gm/dL Albumin/Globulin Ratio (1-2) Urine Color (Yellow) Urine Appearance (Clear) Urine pH (5.0-8.0) Ur Specific [place] (1.005-1.030) Urine Protein (Negative) Urine Glucose (UA) (Negative) Urine Ketones (Negative) Urine Occult Blood (Negative) Urine Nitrite (Negative) Urine Bilirubin (Negative) Urine Urobilinogen (0.2-1.0) Ur Leukocyte Esterase (Negative) Urine RBC (0-5) /hpf Urine WBC (0-5) /hpf Ur Epithelial Cells (0-5) /hpf Ur Squamous Epith Cells (0-5) /hpf Urine Bacteria (FEW) /hpf Urine Mucus (FEW) /hpf 05/23/18 05/23/18 Range/Units 06:39 07:55 WBC (4.23-9.07) K/mm3 RBC (4.63-6.08) M/mm3 Hgb (13.7-17.5) gm/L Hct (40.1-51.0) % MCV (79.0-92.2) fl MCH (25.7-32.2) pg MCHC (32.2-35.5) g/dl RDW Std Deviation (35.1-43.9) fL Plt Count (163-337) K/mm3 MPV (9.4-12.3) fl Neut % (Auto) (34.0-67.9) % Lymph % (Auto) (21.8-53.1) % Craig % (Auto) (5.3-12.2) % Eos % (Auto) (0.8-7.0) Baso % (Auto) (0.1-1.2) % Neut # (Auto) (1.78-5.38) K/mm3 Lymph # (Auto) (1.32-3.57) K/mm3 Craig # (Auto) (0.30-0.82) K/mm3 Eos # (Auto) (0.04-0.54) K/mm3 Baso # (Auto) (0.01-0.08) K/mm3 Manual Slide Review Sodium 139 (136-145) mEq/L Potassium 2.8 L (3.5-5.1) mEq/L Chloride 104 (98-107) mEq/L Carbon Dioxide 21 (21-32) mEq/L Anion Gap 16.8 H (5-15) BUN 12 (7-18) mg/dL Creatinine 1.1 (0.7-1.3) mg/dL Est Cr Clr Drug Dosing 93.08 mL/min Estimated GFR (MDRD) > 60 (>60) mL/min BUN/Creatinine Ratio 10.9 L (14-18) Glucose 151 H (74-106) mg/dL Calcium 8.3 L (8.5-10.1) mg/dL Total Bilirubin 0.4 (0.2-1.0) mg/dL GGT (15-85) U/L AST 8 L (15-37) U/L ALT 12 L (16-63) U/L Alkaline Phosphatase 68 (46-116) U/L C-Reactive Protein (<1.0) mg/dL Total Protein 7.1 (6.4-8.2) g/dl Albumin 3.7 (3.4-5.0) g/dl Globulin 3.4 gm/dL Albumin/Globulin Ratio 1.1 (1-2) Urine Color Yellow (Yellow) Urine Appearance Clear (Clear) Urine pH 6.0 (5.0-8.0) Ur Specific [place] 1.025 (1.005-1.030) Urine Protein 2+ H (Negative) Urine Glucose (UA) Negative (Negative) Urine Ketones Trace H (Negative) Urine Occult Blood Negative (Negative) Urine Nitrite Negative (Negative) Urine Bilirubin 1+ H (Negative) Urine Urobilinogen 0.2 (0.2-1.0) Ur Leukocyte Esterase Negative (Negative) Urine RBC Not seen (0-5) /hpf Urine WBC Not seen (0-5) /hpf Ur Epithelial Cells Not seen (0-5) /hpf Ur Squamous Epith Cells 0-5 (0-5) /hpf Urine Bacteria Not seen (FEW) /hpf Urine Mucus Not seen (FEW) /hpf Result Diagrams: 05/23/18 06:39 05/23/18 06:39 Imaging Impressions Last 24 hrs: Limited abdominal ultrasound: Multiple real-time images of the upper right abdomen were obtained. Comparison: Previous CT abdomen and pelvis exam performed earlier on the same day (7:33 AM). Liver shows no focal abnormality. Gallbladder is somewhat dilated. Gallbladder wall is thickened with mild amount of pericholecystic fluid. Sludge ball appears to be present within the gallbladder. No shadowing gallstones are seen. Right kidney shows no hydronephrosis or mass. Right kidney is length 12.7 cm. No biliary duct dilatation is seen. Pancreas is obscured from bowel gas. Portal vein shows normal hepatopedal flow. Impression: 1. Slightly dilated gallbladder with gallbladder wall thickening and mild pericholecystic fluid. Material is seen within the gallbladder showing no shadowing presumably due to sludge ball. No shadowing gallstones are seen. No biliary duct dilatation is seen. Findings as noted above could represent acalculous cholecystitis. 2. Nonvisualized pancreas due to bowel gas. Other portions of the right upper quadrant abdominal ultrasound are unremarkable. Diagnostic code #3 Dictated by: Mark Anthony Canela MD 05/23/[address] abdomen and pelvis Technique: Multiple axial sections were obtained from above the dome of the diaphragm inferiorly through the pubic symphysis. Intravenous and oral contrast not utilized. Study has been performed as a ureteral stone protocol. Comparison: Prior CT abdomen and pelvis exam of 10/26/11. Findings: Gallbladder is slightly dilated. Possible gallbladder wall edema is noted. No calcified gallstones are seen. Kidneys show no abnormal calcifications. No ureteral dilatation or ureteral stone is seen. Slight atelectasis and scarring is noted within both lung bases. Noncontrast appearance of the liver and spleen shows no discrete abnormality. Previous stomach surgery is noted. Adrenal glands show no nodule. Pancreas appears within normal limits. Aorta shows no aneurysm. Previous small bowel surgery is noted with anastomotic sutures being seen within the right upper abdomen. No retroperitoneal adenopathy or mesenteric abnormalities are seen. Several surgical clips are seen within the anterior abdominal wall and several surgical clips also seen within the anterior subcutaneous fat. No pelvic mass or adenopathy is seen. No free fluid or inflammatory change is seen. Bone window settings were reviewed which appear within normal limits for the patient's age. Impression: 1. Slightly dilated gallbladder with possible gallbladder wall edema. Gallbladder ultrasound could be obtained to further evaluate. 2. No renal calculi, ureteral dilatation or ureteral stone is seen. 3. Evidence of previous abdominal surgery. Other incidental findings. Diagnostic code #3 Dictated by: Mark Anthony Canela MD 05/23/18 at 0811 - Problem List (1) Acute cholecystitis SNOMED Code(s): 62928432 ICD Code: K81.0 - ACUTE CHOLECYSTITIS Status: Acute Current Visit: Yes Problem List Initiated/Reviewed/Updated: Yes Orders Last 24hrs: Active Orders 24 hr Category Date Time Status Peripheral IV Care [RC] . DIRECTED Care 05/23/18 05:47 Active Piperacillin/Tazobactam [Piperacil-Tazobact] 4.5 gm Med 05/23/18 11:00 Active Sodium Chloride 0.9% [Normal Saline] 100 ml IV Q8H Potassium Chloride [KCl 10 MEQ in Water 100 ML] 10 meq Med 05/23/18 11:08 Active Premix Bag 1 bag IV ONETIME Sodium Chloride 0.9% [Normal Saline] 1,000 ml Med 05/23/18 06:00 Active IV ONETIME Sodium Chloride 0.9% [Saline Flush] Med 05/23/18 05:46 Active 10 ml FLUSH ASDIRECTED PRN Peripheral IV Insertion Adult [OM.PC] Stat Oth 05/23/18 05:47 Ordered Medication Orders Sodium Chloride (Normal Saline) 1,000 mls @ 999 mls/hr IV ONETIME DAVID Last Admin: 05/23/18 06:23 Dose: 999 mls/hr Piperacillin Sod/Tazobactam (Sod 4.5 gm/ Sodium Chloride) 100 mls @ 25 mls/hr IV Q8H DAVID Last Admin: 05/23/18 11:21 Dose: 25 mls/hr Potassium Chloride 10 meq/ (Premix) 100 mls @ 100 mls/hr IV ONETIME ONE Stop: 05/23/18 12:07 Last Admin: 05/23/18 11:19 Dose: 100 mls/hr Sodium Chloride (Saline Flush) 10 ml FLUSH ASDIRECTED PRN PRN Reason: Keep Vein Open Last Admin: 05/23/18 06:25 Dose: 10 ml Assessment/Plan Comment:: 47 yo male, h/o multiple medical problems, including TBI (on anti-seizure medication), HTN (on beta-jose), GERD (on PPI), s/p prior gastric bypass for morbid obesity (15 years ago) with history of prior marginal ulcer, active smoker, presenting with acute cholecystitis. WBC elevated at 17.6. Ultrasound and CT images and radiology reports were reviewed. US demonstrates sludge in the gallbladder, with gallbladder wall thickening and pericholecystic fluid. CBD is 5.2 mm. - Recommend surgery. The patient was consented for laparoscopic cholecystectomy , with possible IOC, possible open. Also discussed the possibility of partial cholecystectomy and cholecystostomy, in case of severe inflammation at around the surgical site, which would put the patient at high risk of common bile duct injury. Indications, risks, and benefits were discussed with the patient in detail. Risks include bleeding, infection, damage to surrounding structures, including the common bile duct, need for additional procedures, DVT/PE, OH, CVA , and . - Surgery will be scheduled for tomorrow. - Admit, NPO (except water). - IV Zosyn - Pain control with IV narcotics. - h/o HTN, on beta jose. Continue perioperative carvedilol. Hold acetazolamide. - h/o GERD. Continue PPI (Protonix). - h/o TBI, on anti-seizure medication. Continue carbamazepine - Hypokalemia. K 2.8 on admission, received KCl 20 mEq IV in the ER. Will infuse 40 mEq more. - Repeat electrolytes in AM. Jd Osorio M.D. (Siri), F.A.C.S. General Surgery
[2018-05-23] MEDS ORDERED: HYDROmorphone 1 MG/ML Syringe IVPUSH PRN (11:53)
[2018-05-23] MEDS ORDERED: Ondansetron 4 MG/2 ML SDV IVPUSH PRN (11:58)
[2018-05-23] MEDS: HYDROmorphone 1 MG/ML Syringe IVPUSH PRN ×3 (17:06→23:09)
[2018-05-23] MEDS: DULoxetine 30 MG Cap PO SCH (18:02)
[2018-05-23] MEDS ORDERED: Piperacillin/Tazobactam 4.5 GM in Sodium Chloride 0.9% 100 ML IV SCH (19:00)
[2018-05-23] MEDS: Pantoprazole 40 MG Tab.CR PO SCH (20:49)
[2018-05-23] MEDS: lamoTRIgine 100 MG Tab PO SCH (20:49)
[2018-05-23] MEDS: carBAMazepine 200 MG Tab PO SCH (20:49)
[2018-05-23] MEDS: Carvedilol 6.25 MG Tab PO SCH (20:49)
[2018-05-23] MEDS ORDERED: Sodium Chloride 0.9% 500 ML IV SCH (22:45)
[2018-05-23] MEDS: Sodium Chloride 0.9% 1,000 ML IV SCH (22:59)
[2018-05-23] MEDS: Potassium Chloride 10 MEQ in Premix Bag 1 BAG IV SCH (23:00)
[2018-05-24] MEDS: Potassium Chloride 10 MEQ in Premix Bag 1 BAG IV SCH ×11 (00:19→17:27)
[2018-05-24] MEDS: HYDROmorphone 1 MG/ML Syringe IVPUSH PRN ×8 (01:48→23:04)
[2018-05-24] MEDS: Piperacillin/Tazobactam 4.5 GM in Sodium Chloride 0.9% 100 ML IV SCH ×3 (04:34→21:03)
[2018-05-24] MEDS ORDERED: Potassium Chloride 20 MEQ Tab.ER PO ONE (08:09)
[2018-05-24] MEDS: Sodium Chloride 0.9% 1,000 ML IV SCH ×2 (09:07→21:38)
[2018-05-24] MEDS: Carvedilol 6.25 MG Tab PO SCH ×3 (09:46→20:49)
[2018-05-24] MEDS: lamoTRIgine 100 MG Tab PO SCH ×2 (09:46→20:49)
[2018-05-24] MEDS: DULoxetine 30 MG Cap PO SCH ×2 (09:46→18:17)
[2018-05-24] MEDS: Pantoprazole 40 MG Tab.CR PO SCH ×2 (09:47→20:49)
[2018-05-24] MEDS: carBAMazepine 200 MG Tab PO SCH ×2 (09:47→20:50)
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
[2018-05-24] MEDS ORDERED: Magnesium Sulfate/Water 2 GM in Premix Bag 1 BAG IV ONE (12:00)
--- NOTE | 2018-05-24 12:10 | PCM.PN ---
- General Info Date of Service: 05/24/18 Admission Dx/Problem (Free Text): acute cholecystitis Subjective Update: Overnight, the patient required IV Dilaudid for RUQ abdominal pain. He tolerated water up until last night. No nausea. - Patient Data Vitals - Most Recent: Last Vital Signs Temp 36.9 C 05/24/18 11:14 Pulse 90 05/24/18 11:14 Resp 14 05/24/18 11:14 BP 122/64 05/24/18 11:14 Pulse Ox 91 L 05/24/18 11:14 Weight - Most Recent: 121.619 kg I&O - Last 24 Hours: Intake & Output 05/23/18 05/24/18 05/24/18 22:59 06:59 14:59 Intake Total 1100 Output Total 2 Balance 1098 Lab Results Last 24 Hours: Laboratory Results - last 24 hr 05/24/18 05/24/18 05/24/18 Range/Units 06:45 06:45 06:45 WBC 19.12 H (4.23-9.07) K/mm3 RBC 4.19 L (4.63-6.08) M/mm3 Hgb 12.7 L (13.7-17.5) gm/L Hct 38.3 L (40.1-51.0) % MCV 91.4 (79.0-92.2) fl MCH 30.3 (25.7-32.2) pg MCHC 33.2 (32.2-35.5) g/dl RDW Std Deviation 45.6 H (35.1-43.9) fL Plt Count 207 (163-337) K/mm3 MPV 9.7 (9.4-12.3) fl Neut % (Auto) 86.0 H (34.0-67.9) % Lymph % (Auto) 6.1 L (21.8-53.1) % [place] % (Auto) 7.3 (5.3-12.2) % Eos % (Auto) 0.2 L (0.8-7.0) Baso % (Auto) 0.1 (0.1-1.2) % Neut # (Auto) 16.46 H (1.78-5.38) K/mm3 Lymph # (Auto) 1.17 L (1.32-3.57) K/mm3 [place] # (Auto) 1.40 H (0.30-0.82) K/mm3 Eos # (Auto) 0.03 L (0.04-0.54) K/mm3 Baso # (Auto) 0.01 (0.01-0.08) K/mm3 Manual Slide Review Abnormal smear Sodium 140 (136-145) mEq/L Potassium 2.7 L (3.5-5.1) mEq/L Chloride 106 (98-107) mEq/L Carbon Dioxide 22 (21-32) mEq/L Anion Gap 14.7 (5-15) BUN 16 (7-18) mg/dL Creatinine 1.0 (0.7-1.3) mg/dL Est Cr Clr Drug Dosing 102.39 mL/min Estimated GFR (MDRD) > 60 (>60) mL/min BUN/Creatinine Ratio 16.0 (14-18) Glucose 98 (74-106) mg/dL Calcium 7.9 L (8.5-10.1) mg/dL Phosphorus 3.0 (2.6-4.7) mg/dL Magnesium 1.7 L (1.8-2.4) mg/dl Med Orders - Current: Current Medications Carbamazepine (Tegretol Tab) 400 mg PO BID [facility] Last Admin: 05/24/18 09:47 Dose: Not Given Carvedilol (Coreg) 6.25 mg PO BID [facility] Last Admin: 05/24/18 10:00 Dose: 6.25 mg Duloxetine HCl (Cymbalta) 30 mg PO QPM [facility] Last Admin: 05/23/18 18:02 Dose: 30 mg Duloxetine HCl (Cymbalta) 60 mg PO QAM [facility] Last Admin: 05/24/18 09:46 Dose: Not Given Hydromorphone HCl (Dilaudid) 1 mg IVPUSH Q2H PRN PRN Reason: Pain Last Admin: 05/24/18 11:41 Dose: 1 mg Piperacillin Sod/Tazobactam (Sod 4.5 gm/ Sodium Chloride) 100 mls @ 25 mls/hr IV Q8H [facility] Last Admin: 05/24/18 11:34 Dose: Not Given Sodium Chloride (Normal Saline) 1,000 mls @ 100 mls/hr IV ASDIRECTED [facility] Last Admin: 05/24/18 09:07 Dose: 100 mls/hr Potassium Chloride 10 meq/ (Premix) 100 mls @ 100 mls/hr IV Q1H [facility] Stop: 05/24/18 12:14 Last Admin: 05/24/18 12:06 Dose: 100 mls/hr Magnesium Sulfate 2 gm/ Premix 50 mls @ 25 mls/hr IV ONETIME ONE Stop: 05/24/18 13:59 Lamotrigine (Lamotrigine) 100 mg PO BID [facility] Last Admin: 05/24/18 09:46 Dose: Not Given Ondansetron HCl (Zofran) 4 mg IVPUSH Q8H PRN PRN Reason: Nausea Pantoprazole Sodium (Protonix) 40 mg PO BID [facility] Last Admin: 05/24/18 09:47 Dose: Not Given Sodium Chloride (Saline Flush) 10 ml FLUSH ASDIRECTED PRN PRN Reason: Keep Vein Open Last Admin: 05/23/18 06:25 Dose: 10 ml Discontinued Medications Hydromorphone HCl (Dilaudid) 1 mg IVPUSH ONETIME ONE Stop: 05/23/18 05:48 Last Admin: 05/23/18 06:21 Dose: 1 mg Hydromorphone HCl (Dilaudid) 1 mg IVPUSH ONETIME ONE Stop: 05/23/18 08:01 Last Admin: 05/23/18 08:43 Dose: 1 mg Hydromorphone HCl (Dilaudid) 1 mg IVPUSH ONETIME ONE Stop: 05/23/18 10:47 Last Admin: 05/23/18 10:57 Dose: 1 mg Hydromorphone HCl (Dilaudid) 0.2 - 0.6 mg IVPUSH Q2H PRN PRN Reason: Pain Last Admin: 05/23/18 15:23 Dose: 0.6 mg Sodium Chloride (Normal Saline) 1,000 mls @ 999 mls/hr IV ONETIME [facility] Last Admin: 05/23/18 06:23 Dose: 999 mls/hr Potassium Chloride 10 meq/ (Premix) 100 mls @ 50 mls/hr IV ASDIRECTED ONE Stop: 05/23/18 09:19 Last Admin: 05/23/18 07:29 Dose: 50 mls/hr Levofloxacin/Dextrose 750 mg/ (Premix) 150 mls @ 100 mls/hr IV ONETIME ONE Stop: 05/23/18 12:16 Last Admin: 05/23/18 11:03 Dose: 100 mls/hr Potassium Chloride 10 meq/ (Premix) 100 mls @ 100 mls/hr IV ONETIME ONE Stop: 05/23/18 12:07 Last Admin: 05/23/18 11:19 Dose: 100 mls/hr Piperacillin Sod/Tazobactam (Sod 4.5 gm/ Sodium Chloride) 100 mls @ 25 mls/hr IV Q8H [facility] Potassium Chloride 10 meq/ (Premix) 100 mls @ 100 mls/hr IV Q1H [facility] Stop: 05/24/18 02:59 Last Admin: 05/24/18 03:12 Dose: 75 mls/hr Sodium Chloride (Normal Saline) 500 mls @ 50 mls/hr IV ASDIRECTED [facility] Stop: 05/24/18 03:00 Metoclopramide HCl (Reglan) 10 mg IVPUSH ONETIME ONE Stop: 05/23/18 10:47 Last Admin: 05/23/18 10:54 Dose: 10 mg Ondansetron HCl (Zofran) 4 mg IVPUSH ONETIME ONE Stop: 05/23/18 05:48 Last Admin: 05/23/18 06:20 Dose: 4 mg Potassium Chloride (Klor-Con M20) 40 meq PO ONETIME ONE Stop: 05/24/18 08:10 Last Admin: 05/24/18 08:37 Dose: 40 meq - Exam General: Alert, Oriented, Cooperative HEENT: No: Scleral Icterus GI/Abdominal Exam: Soft, Tender (to the RUQ) - Problem List & Annotations (1) Acute cholecystitis SNOMED Code(s): 18781098 Code(s): K81.0 - ACUTE CHOLECYSTITIS Status: Acute Current Visit: Yes - Problem List Review Problem List Initiated/Reviewed/Updated: Yes - My Orders Last 24 Hours: My Active Orders 05/23/18 11:51 Patient Status [ADT] Routine Oxygen Therapy [RC] PRN Up ad Deneen [RC] ASDIRECTED VTE/DVT Education [RC] Vital Signs [RC] Q4HR Resuscitation Status Routine 05/23/18 11:52 Sequential Compression Device [OM.PC] Per Unit Routine 05/23/18 11:53 Antiembolic Devices [RC] 05/23/18 11:58 Ondansetron [Zofran] 4 mg IVPUSH Q8H PRN 05/23/18 16:56 HYDROmorphone [Dilaudid] 1 mg IVPUSH Q2H PRN 05/23/18 18:00 DULoxetine [Cymbalta] 30 mg PO QPM 05/23/18 21:00 Carvedilol [Coreg] 6.25 mg PO BID Pantoprazole [ProTONIX] 40 mg PO BID carBAMazepine [TEGretol Tab] 400 mg PO BID lamoTRIgine 100 mg PO BID 05/23/18 22:30 Sodium Chloride 0.9% [Normal Saline] 1,000 ml IV ASDIRECTED 05/24/18 01:17 Schedule Procedure [COMM] Routine 05/24/18 08:00 DULoxetine [Cymbalta] 60 mg PO QAM 05/24/18 08:15 Potassium Chloride [KCl 10 MEQ in Water 100 ML] 10 meq Premix Bag 1 bag IV Q1H 05/24/18 12:00 Magnesium Sulfate/Water [Magnesium Sulfate 2 GM in Water 50 ML] 2 gm Premix Bag 1 bag IV ONETIME 05/24/18 12:07 BMP [BASIC METABOLIC PANEL,BMP] [CHEM] Routine 05/24/18 Breakfast NPO After Midnight [Nothing per Oral After Midnight Diet] [DIET] - Plan Plan:: 47 yo male, h/o multiple medical problems, including TBI (on anti-seizure medication), HTN (on beta-jose), GERD (on PPI), s/p prior gastric bypass for morbid obesity (15 years ago) with history of prior marginal ulcer, active smoker, presenting with acute cholecystitis. Persistent pain, tenderness, and leukocytosis. Hypokalemia (K 2.7) and hypomagnesemia (Mg 1.7). Correction of K pre-op. Oral and IV K administered, and pre-op K was 3.2 - Will proceed with surgery as planned. Explained to the patient again the possibility of inability to safely remove the gallbladder due to severe inflammation. - Continue IV Zosyn. - h/o HTN, on beta jose. Continue perioperative carvedilol. Hold acetazolamide. - h/o GERD. Continue PPI (Protonix). - h/o TBI, on anti-seizure medication. Continue carbamazepine - SCD's. [employer]" Prince Osorio., F.A.C.S. General Surgery
[2018-05-24] MEDS ORDERED: Ondansetron 4 MG/2 ML SDV ONE (13:00)
[2018-05-24] MEDS ORDERED: Propofol 200 MG/20 ML SDV ONE (13:00)
[2018-05-24] MEDS ORDERED: Rocuronium 50 MG/5 ML Vial ONE ×2 (13:00→13:57)
[2018-05-24] MEDS ORDERED: Lidocaine 1% 4 ML ONE (13:01)
[2018-05-24] MEDS ORDERED: Midazolam 1 MG/ML 2 ML SDV ONE (13:01)
[2018-05-24] MEDS ORDERED: fentaNYL 250 MCG/5 ML SDV ONE (13:01)
[2018-05-24] MEDS ORDERED: Lidocaine 1% with EPINEPHrine 1:100,000 20 ML MDV ONE (13:03)
[2018-05-24] MEDS ORDERED: Bupivacaine 0.5% 30 ML SDV ONE (13:03)
[2018-05-24] MEDS ORDERED: Piperacillin/Tazobactam 4.5 GM in Sodium Chloride 0.9% 100 ML IV ONE (13:45)
[2018-05-24] MEDS ORDERED: HYDROmorphone 0.5 MG/0.5 ML Syringe ONE ×2 (14:57)
[2018-05-24] MEDS ORDERED: fentaNYL 100 MCG/2 ML SDV ONE (14:58)
[2018-05-24] MEDS ORDERED: Lactated Ringers 1,000 ML ONE ×2 (15:02→15:21)
[2018-05-24] MEDS ORDERED: Neostigmine Methylsulfate 1 MG/ML 5 ML Syringe ONE (15:29)
--- NOTE | 2018-05-24 15:48 | PCM.POSTAN ---
POST ANESTHESIA ASSESSMENT - MENTAL STATUS Mental Status: Alert, Oriented - VITAL SIGNS Pulse Rate: 89 SaO2: 90 Resp Rate: 15 Blood Pressure: 116/67 Temperature: 101 F - RESPIRATORY Respiratory Status: Respiratory Rate WNL, Airway Patent, O2 Saturation Stable, Supplemental Oxygen - CARDIOVASCULAR CV Status: Pulse Rate WNL, Blood Pressure Stable - GASTROINTESTINAL GI Status: No Symptoms - PAIN Pain Score: 0 (denies) - POST OP HYDRATION Hydration Status: Adequate & Stable
--- NOTE | 2018-05-24 15:50 | PCM.OPNOTE ---
- General Post-Op/Procedure Note Date of Surgery/Procedure: 05/24/18 Operative Procedure(s): laparoscopic cholecystostomy and placement of intraperitoneal drain Findings: Significant inflammation of gallbladder, with inability to define anatomy at the triangle of Calot. Insertion of 16 Fr Gomez catheter into the gallbladder as cholecystomy. Placement of 10 mm flat JONATHAN into the peritoneal cavity. Pre Op Diagnosis: acute cholecystitis Post-Op Diagnosis: Same Anesthesia Technique: General ET Tube Primary Surgeon: Jd Osorio Anesthesia Provider: Mandeep Han Fluid Replacement, Intraop: 1,400 (crystalloid) EBL in mLs: 20 Surgical Drain/Tube Type: [place] Drain (10 mm flat, intra-peritoneal) Drain/Tube Comments:: cholecytostomy tube (16 Fr Gomez) Complications: None Condition: Good Free Text/Narrative:: Indications for surgery: The patient is a 47 yo male, who presents with acute cholecystitis. The patient was admitted yesterday and placed on IV Zosyn. He was consented for laparoscopic cholecystectomy, possible open, possible intraoperative cholangiogram. Indications, risks, and benefits were discussed with the patient in detail. Also explained the possibility of inability to remove the entire gallbladder or need for drain given the anticipated inflammation. Description of procedure: After surgical consent was verified, the patient was brought to the main OR. Anesthesia performed general endotracheal intubation without complications. Appropriate padding and straps were placed. SCD's were on and functioning. The patient had been receiving ongoing IV Zosyn. A surgical time-out was performed to verify proper patient, proper site, and proper procedure. Due to the patient's prior surgeries, including laparoscopic gastric bypass and abdominoplasty, the decision was made to enter the abdomen at Cash's point. Local anesthetic (1:1 solution of 1% lidocaine with epinephrine and 0.5% bupivacaine) was injected at LUQ. A Veress needle was inserted, and the abdomen was insufflated to 15 mmHg. A 5 mm trocar was inserted using the Optiview technique. A laparoscope was inserted, and there was no evidence of intra- abdominal injury from trocar placement. The patient was re-positioned to reverse Trendelenburg with RIGHT side up. Additional trocars were placed: a 5 mm trocar at the supraumbilical region, a 5 mm trocar at the epigastric region, and two 5-mm trocars in the RUQ. The gallbladder was identified. It was notably inflamed with inflammatory adhesions from the surrounding omental fat, which had to be dissected off. The gallbladder was very distended and inflamed. A needle was placed to decompress the gallbladder. The fundus of the gallbladder was grasped and elevated over the liver. Dissection continued to remove inflammatory fat adhesions from around the gallbladder. There was a large amount of surrounding omental fat, which was retracted downwards using an instrument inserted through the LUQ site. Due to the significant inflammation, attempts to safely expose Calot's triangle were unsuccessful. There was a lot of inflammation and adhesions that prevented exposure. Based on this intraoperative finding, the decision was to not proceed with gallbladder removal due to the significant risk of ductal injury with continued dissection. The decision was made to perform a cholecystostomy tube placement. Dr. Edvin Gotti was consulted for intraoperative assistance. He agreed that the significant inflammation would make dissection unsafe. The hole through which the needle was previously inserted into the gallbladder was widened to create a larger hole to insert a cholecystostomy tube. Through the RUQ/medial port site, a 16 Fr Gomez was inserted. The Gomez was inserted into through the gallbladder opening. The balloon was inflated with 13 cc of air , and was noted to be in good position. A flat 10 mm JONATHAN drain was inserted into the peritoneal cavity, and positioned around the gallbladder, with the drain exiting the RUQ/lateral port site. This drain was secured to the skin with a 2-0 nylon suture. The abdomen was allowed to desufflate, with direct visualization of the cholecystostomy tube, which would then be secured to the skin with two 2-0 nylon sutures. All skin sites were closed with 4-0 Monocryl and covered with Dermabond. The patient tolerated the procedure well, was extubated, and transported to the PACU in stable condition. At the end of the case, all needle, instrument, and gauze counts were correct. I was present and scrubbed for the entirety of the case. Jd Osorio M.D (Siri)., F.A.C.S. General Surgery
[2018-05-25] MEDS: HYDROmorphone 1 MG/ML Syringe IVPUSH PRN ×12 (01:25→22:41)
[2018-05-25] MEDS: Piperacillin/Tazobactam 4.5 GM in Sodium Chloride 0.9% 100 ML IV SCH ×3 (05:14→21:18)
[2018-05-25] MEDS: Sodium Chloride 0.9% 1,000 ML IV SCH (05:58)
--- NOTE | 2018-05-25 07:33 | CONS ---
CONSULTING PHYSICIAN: Edvin Gotti MD DATE OF CONSULTATION: 05/24/2018 I was asked to come into the operating room doctor of Dr. Hayward's laparoscopic cholecystectomy on the patient. He had asked advice concerning approaches. Findings at laparoscopy were that of acutely inflamed and thickened wall gallbladder with very little mobility and inability to take Randy pouch and karoline it and raise the fundus so that the Calot triangle could be clearly seen and thus safely dissected out. The findings, at the time of the surgery, were acute cholecystitis with very poor view of the Calot triangle. Unlikely a foreshortened cystic duct, and as such, dissection would jeopardize or lead to high rate of injury to the common duct. It is my advice either to open or to place a tube in the gallbladder and wait for a better day. HARRIETT /[id number]
--- NOTE | 2018-05-25 08:05 | PCM48HPAN ---
Post Anesthesia Note - EVALUATION WITHIN 48HRS OF ANESTHETIC Vital Signs in Normal Range: Yes Patient Participated in Evaluation: Yes Respiratory Function Stable: Yes Airway Patent: Yes Cardiovascular Function Stable: Yes Hydration Status Stable: Yes Pain Control Satisfactory: Yes Nausea and Vomiting Control Satisfactory: Yes Mental Status Recovered: Yes - COMMENTS/OBSERVATIONS Free Text/Narrative:: Patient denies any anesthesia complications
[2018-05-25] MEDS: DULoxetine 30 MG Cap PO SCH ×2 (09:15→17:14)
[2018-05-25] MEDS: carBAMazepine 200 MG Tab PO SCH ×2 (09:15→20:08)
[2018-05-25] MEDS: Carvedilol 6.25 MG Tab PO SCH ×2 (09:16→20:10)
[2018-05-25] MEDS: Pantoprazole 40 MG Tab.CR PO SCH ×2 (09:20→20:09)
[2018-05-25] MEDS: lamoTRIgine 100 MG Tab PO SCH ×2 (09:20→20:10)
[2018-05-25] MEDS: Potassium Chloride 10 MEQ in Premix Bag 1 BAG IV SCH ×6 (13:55→20:11)
[2018-05-25] MEDS ORDERED: Nicotine 21 MG/24 Hr Patch TRDERM PRN (16:07)
--- NOTE | 2018-05-25 16:24 | PCM.SURGPN ---
- General Info Date of Service: 05/25/18 POD#: 1 Functional Status: Reports: Pain Controlled - Review of Systems General: Reports: No Symptoms HEENT: Reports: No Symptoms Pulmonary: Reports: No Symptoms Cardiovascular: Reports: No Symptoms Gastrointestinal: Reports: Abdominal Pain (states that the abdominal pain is improving but requesting more pain medications ) - Patient Data Vitals - Most Recent: Last Vital Signs Temp 98.1 F 05/25/18 14:05 Pulse 94 05/25/18 14:05 Resp 19 05/25/18 14:05 BP 109/59 L 05/25/18 14:05 Pulse Ox 91 L 05/25/18 14:05 Weight - Most Recent: 125.248 kg I&O - Last 24 Hours: Intake & Output 05/25/18 05/25/18 05/25/18 07:59 15:59 23:59 Intake Total 1425 921 Output Total 285 135 Balance 1140 786 Lab Results Last 24 Hrs: Laboratory Results - last 24 hr 05/25/18 05/25/18 Range/Units 05:54 05:54 WBC 11.88 H (4.23-9.07) K/mm3 RBC 3.84 L (4.63-6.08) M/mm3 Hgb 11.6 L (13.7-17.5) gm/L Hct 35.4 L (40.1-51.0) % MCV 92.2 (79.0-92.2) fl MCH 30.2 (25.7-32.2) pg MCHC 32.8 (32.2-35.5) g/dl RDW Std Deviation 45.3 H (35.1-43.9) fL Plt Count 204 (163-337) K/mm3 MPV 9.8 (9.4-12.3) fl Neut % (Auto) 80.6 H (34.0-67.9) % Lymph % (Auto) 11.4 L (21.8-53.1) % [place] % (Auto) 7.1 (5.3-12.2) % Eos % (Auto) 0.6 L (0.8-7.0) Baso % (Auto) 0.1 (0.1-1.2) % Neut # (Auto) 9.58 H (1.78-5.38) K/mm3 Lymph # (Auto) 1.36 (1.32-3.57) K/mm3 [place] # (Auto) 0.84 H (0.30-0.82) K/mm3 Eos # (Auto) 0.07 (0.04-0.54) K/mm3 Baso # (Auto) 0.01 (0.01-0.08) K/mm3 Sodium 138 (136-145) mEq/L Potassium 2.9 L (3.5-5.1) mEq/L Chloride 104 (98-107) mEq/L Carbon Dioxide 24 (21-32) mEq/L Anion Gap 12.9 (5-15) BUN 13 (7-18) mg/dL Creatinine 1.0 (0.7-1.3) mg/dL Est Cr Clr Drug Dosing 102.39 mL/min Estimated GFR (MDRD) > 60 (>60) mL/min BUN/Creatinine Ratio 13.0 L (14-18) Glucose 83 (74-106) mg/dL Calcium 7.9 L (8.5-10.1) mg/dL Phosphorus 2.4 L (2.6-4.7) mg/dL Magnesium 2.2 (1.8-2.4) mg/dl Med Orders - Current: Current Medications Carbamazepine (Tegretol Tab) 400 mg PO BID [facility] Last Admin: 05/25/18 09:15 Dose: 400 mg Carvedilol (Coreg) 6.25 mg PO BID [facility] Last Admin: 05/25/18 09:16 Dose: 6.25 mg Duloxetine HCl (Cymbalta) 30 mg PO QPM [facility] Last Admin: 05/24/18 18:17 Dose: 30 mg Duloxetine HCl (Cymbalta) 60 mg PO QAM [facility] Last Admin: 05/25/18 09:15 Dose: 60 mg Hydromorphone HCl (Dilaudid) 1 mg IVPUSH Q2H PRN PRN Reason: Pain Last Admin: 05/25/18 15:53 Dose: 1 mg Hydromorphone HCl (Dilaudid) 1 mg IVPUSH Q1H PRN PRN Reason: pain Stop: 05/26/18 16:00 Piperacillin Sod/Tazobactam (Sod 4.5 gm/ Sodium Chloride) 100 mls @ 25 mls/hr IV Q8H [facility] Last Admin: 05/25/18 14:03 Dose: 25 mls/hr Potassium Chloride 10 meq/ (Premix) 100 mls @ 100 mls/hr IV Q1H [facility] Stop: 05/25/18 18:14 Last Admin: 05/25/18 15:58 Dose: 100 mls/hr Lactated Ringer's (Ringers, Lactated) 1,000 mls @ 100 mls/hr IV ASDIRECTED [facility] Lamotrigine (Lamotrigine) 100 mg PO BID [facility] Last Admin: 05/25/18 09:20 Dose: 100 mg Nicotine (Habitrol) 21 mg TRDERM DAILY PRN PRN Reason: Other Ondansetron HCl (Zofran) 4 mg IVPUSH Q8H PRN PRN Reason: Nausea Pantoprazole Sodium (Protonix) 40 mg PO BID [facility] Last Admin: 05/25/18 09:20 Dose: 40 mg Sodium Chloride (Saline Flush) 10 ml FLUSH ASDIRECTED PRN PRN Reason: Keep Vein Open Last Admin: 05/23/18 06:25 Dose: 10 ml Discontinued Medications Bupivacaine HCl (Marcaine 0.5%) Confirm Administered Dose 30 ml .ROUTE .STK-MED ONE Stop: 05/24/18 13:04 Last Admin: 05/24/18 13:54 Dose: 12.5 ml Fentanyl (Sublimaze) Confirm Administered Dose 250 mcg .ROUTE .STK-MED ONE Stop: 05/24/18 13:02 Fentanyl (Sublimaze) Confirm Administered Dose 100 mcg .ROUTE .STK-MED ONE Stop: 05/24/18 14:59 Glycopyrrolate () Confirm Administered Dose 1 mg .ROUTE .STK-MED ONE Stop: 05/24/18 15:30 Hydromorphone HCl (Dilaudid) 1 mg IVPUSH ONETIME ONE Stop: 05/23/18 05:48 Last Admin: 05/23/18 06:21 Dose: 1 mg Hydromorphone HCl (Dilaudid) 1 mg IVPUSH ONETIME ONE Stop: 05/23/18 08:01 Last Admin: 05/23/18 08:43 Dose: 1 mg Hydromorphone HCl (Dilaudid) 1 mg IVPUSH ONETIME ONE Stop: 05/23/18 10:47 Last Admin: 05/23/18 10:57 Dose: 1 mg Hydromorphone HCl (Dilaudid) 0.2 - 0.6 mg IVPUSH Q2H PRN PRN Reason: Pain Last Admin: 05/23/18 15:23 Dose: 0.6 mg Hydromorphone HCl (Dilaudid) Confirm Administered Dose 0.5 mg .ROUTE .STK-MED ONE Stop: 05/24/18 14:58 Hydromorphone HCl (Dilaudid) Confirm Administered Dose 0.5 mg .ROUTE .STK-MED ONE Stop: 05/24/18 14:58 Sodium Chloride (Normal Saline) 1,000 mls @ 999 mls/hr IV ONETIME [facility] Last Admin: 05/23/18 06:23 Dose: 999 mls/hr Potassium Chloride 10 meq/ (Premix) 100 mls @ 50 mls/hr IV ASDIRECTED ONE Stop: 05/23/18 09:19 Last Admin: 05/23/18 07:29 Dose: 50 mls/hr Levofloxacin/Dextrose 750 mg/ (Premix) 150 mls @ 100 mls/hr IV ONETIME ONE Stop: 05/23/18 12:16 Last Admin: 05/23/18 11:03 Dose: 100 mls/hr Piperacillin Sod/Tazobactam (Sod 4.5 gm/ Sodium Chloride) 100 mls @ 25 mls/hr IV Q8H [facility] Last Admin: 05/24/18 11:34 Dose: Not Given Potassium Chloride 10 meq/ (Premix) 100 mls @ 100 mls/hr IV ONETIME ONE Stop: 05/23/18 12:07 Last Admin: 05/23/18 11:19 Dose: 100 mls/hr Piperacillin Sod/Tazobactam (Sod 4.5 gm/ Sodium Chloride) 100 mls @ 25 mls/hr IV Q8H [facility] Sodium Chloride (Normal Saline) 1,000 mls @ 100 mls/hr IV ASDIRECTED [facility] Last Admin: 05/25/18 05:58 Dose: 100 mls/hr Potassium Chloride 10 meq/ (Premix) 100 mls @ 100 mls/hr IV Q1H [facility] Stop: 05/24/18 02:59 Last Admin: 05/24/18 03:12 Dose: 75 mls/hr Sodium Chloride (Normal Saline) 500 mls @ 50 mls/hr IV ASDIRECTED [facility] Stop: 05/24/18 03:00 Potassium Chloride 10 meq/ (Premix) 100 mls @ 100 mls/hr IV Q1H [facility] Stop: 05/24/18 12:14 Last Admin: 05/24/18 12:06 Dose: 100 mls/hr Magnesium Sulfate 2 gm/ Premix 50 mls @ 25 mls/hr IV ONETIME ONE Stop: 05/24/18 13:59 Last Admin: 05/24/18 13:09 Dose: 25 mls/hr Lidocaine HCl (Xylocaine-Mpf 1%) Confirm Administered Dose 4 mls @ as directed .ROUTE .STK-MED ONE Stop: 05/24/18 13:02 Potassium Chloride 10 meq/ (Premix) 100 mls @ 100 mls/hr IV Q1H [facility] Stop: 05/24/18 17:59 Last Admin: 05/24/18 17:27 Dose: 100 mls/hr Piperacillin Sod/Tazobactam (Sod 4.5 gm/ Sodium Chloride) 100 mls @ 200 mls/hr IV ONETIME ONE Stop: 05/24/18 14:14 Last Admin: 05/24/18 16:51 Dose: Not Given Lactated Ringer's (Ringers, Lactated) Confirm Administered Dose 1,000 mls @ as directed .ROUTE .STK-MED ONE Stop: 05/24/18 15:03 Lactated Ringer's (Ringers, Lactated) Confirm Administered Dose 1,000 mls @ as directed .ROUTE .STK-MED ONE Stop: 05/24/18 15:22 Lidocaine/Epinephrine (Xylocaine 1% With Epinephrine 1:100,000) Confirm Administered Dose 20 ml .ROUTE .STK-MED ONE Stop: 05/24/18 13:04 Last Admin: 05/24/18 13:54 Dose: 12.5 ml Metoclopramide HCl (Reglan) 10 mg IVPUSH ONETIME ONE Stop: 05/23/18 10:47 Last Admin: 05/23/18 10:54 Dose: 10 mg Midazolam HCl (Versed 1 Mg/Ml) Confirm Administered Dose 2 mg .ROUTE .STK-MED ONE Stop: 05/24/18 13:02 Neostigmine Methylsulfate (Neostigmine) Confirm Administered Dose 5 mg .ROUTE .STK-MED ONE Stop: 05/24/18 15:30 Ondansetron HCl (Zofran) 4 mg IVPUSH ONETIME ONE Stop: 05/23/18 05:48 Last Admin: 05/23/18 06:20 Dose: 4 mg Ondansetron HCl (Zofran) Confirm Administered Dose 4 mg .ROUTE .STK-MED ONE Stop: 05/24/18 13:01 Potassium Chloride (Klor-Con M20) 40 meq PO ONETIME ONE Stop: 05/24/18 08:10 Last Admin: 05/24/18 08:37 Dose: 40 meq Propofol (Diprivan 20 Ml) Confirm Administered Dose 200 mg .ROUTE .STK-MED ONE Stop: 05/24/18 13:01 Rocuronium [place] (Zemuron) Confirm Administered Dose 50 mg .ROUTE .STK-MED ONE Stop: 05/24/18 13:01 Rocuronium [place] (Zemuron) Confirm Administered Dose 50 mg .ROUTE .STK-MED ONE Stop: 05/24/18 13:58 - Exam Wound/Incisions: Healing Well General: Cooperative GI/Abdominal Exam: Tender (in the RUQ tubes in the gall bladder minimal drainage , the JONATHAN has serous fluid minimal ) - Problem List Review Problem List Initiated/Reviewed/Updated: Yes - My Orders Last 24 Hours: Active Orders 24 hr Category Date Time Status Patient Status [ADT] Routine ADT 05/25/18 12:10 Active Drain Management [RC] ASDIRECTED Care 05/24/18 20:50 Active PT Evaluation and Treatment [CONS] Routine Cons 05/25/18 12:46 Active Clear Liquid Diet [DIET] Diet 05/25/18 Dinner Active NPO [Nothing Per Oral Diet] [DIET] Diet 05/25/18 Breakfast Active CBC WITH AUTO DIFF [HEME] Routine Lab 05/26/18 05:00 Ordered CMP [COMPREHENSIVE METABOLIC PN,CMP] [CHEM] Routine Lab 05/26/18 05:00 Ordered HYDROmorphone [Dilaudid] Med 05/25/18 16:04 Active 1 mg IVPUSH Q1H PRN Lactated Ringers [Ringers, Lactated] 1,000 ml Med 05/25/18 16:15 Active IV ASDIRECTED Nicotine [Habitrol] Med 05/25/18 16:07 Active 21 mg TRDERM DAILY PRN Piperacillin/Tazobactam [Piperacil-Tazobact] 4.5 gm Med 05/24/18 22:00 Active Sodium Chloride 0.9% [Normal Saline] 100 ml IV Q8H Potassium Chloride [KCl 10 MEQ in Water 100 ML] 10 meq Med 05/25/18 12:15 Active Premix Bag 1 bag IV Q1H Medication Orders Carbamazepine (Tegretol Tab) 400 mg PO BID [facility] Last Admin: 05/25/18 09:15 Dose: 400 mg Admin: 05/24/18 20:50 Dose: 400 mg Admin: 05/24/18 09:47 Dose: Admin: 05/23/18 20:49 Dose: 400 mg Carvedilol (Coreg) 6.25 mg PO BID [facility] Last Admin: 05/25/18 09:16 Dose: 6.25 mg Admin: 05/24/18 20:49 Dose: 6.25 mg Admin: 05/24/18 10:00 Dose: 6.25 mg Admin: 05/23/18 20:49 Dose: 6.25 mg Duloxetine HCl (Cymbalta) 30 mg PO QPM [facility] Last Admin: 05/24/18 18:17 Dose: 30 mg Admin: 05/23/18 18:02 Dose: 30 mg Duloxetine HCl (Cymbalta) 60 mg PO QAM [facility] Last Admin: 05/25/18 09:15 Dose: 60 mg Admin: 05/24/18 09:46 Dose: Hydromorphone HCl (Dilaudid) 1 mg IVPUSH Q2H PRN PRN Reason: Pain Last Admin: 05/25/18 15:53 Dose: 1 mg Admin: 05/25/18 13:51 Dose: 1 mg Admin: 05/25/18 11:34 Dose: 1 mg Admin: 05/25/18 09:12 Dose: 1 mg Admin: 05/25/18 06:04 Dose: 1 mg Admin: 05/25/18 03:53 Dose: 1 mg Admin: 05/25/18 01:25 Dose: 1 mg Admin: 05/24/18 23:04 Dose: 1 mg Admin: 05/24/18 20:52 Dose: 1 mg Admin: 05/24/18 17:01 Dose: 1 mg Admin: 05/24/18 11:41 Dose: 1 mg Admin: 05/24/18 08:38 Dose: 1 mg Admin: 05/24/18 06:47 Dose: 1 mg Admin: 05/24/18 04:33 Dose: 1 mg Admin: 05/24/18 01:48 Dose: 1 mg Admin: 05/23/18 23:09 Dose: 1 mg Admin: 05/23/18 21:04 Dose: 1 mg Admin: 05/23/18 17:06 Dose: 1 mg Hydromorphone HCl (Dilaudid) 1 mg IVPUSH Q1H PRN PRN Reason: pain Stop: 05/26/18 16:00 Piperacillin Sod/Tazobactam (Sod 4.5 gm/ Sodium Chloride) 100 mls @ 25 mls/hr IV Q8H [facility] Last Admin: 05/25/18 14:03 Dose: 25 mls/hr Infusion: 05/25/18 09:14 Dose: 25 mls/hr Admin: 05/25/18 05:14 Dose: 25 mls/hr Infusion: 05/25/18 01:03 Dose: 25 mls/hr Admin: 05/24/18 21:03 Dose: 25 mls/hr Potassium Chloride 10 meq/ (Premix) 100 mls @ 100 mls/hr IV Q1H [facility] Stop: 05/25/18 18:14 Last Admin: 05/25/18 15:58 Dose: 100 mls/hr Infusion: 05/25/18 15:56 Dose: 100 mls/hr Admin: 05/25/18 14:56 Dose: 100 mls/hr Infusion: 05/25/18 14:55 Dose: 100 mls/hr Admin: 05/25/18 13:55 Dose: 100 mls/hr Lactated Ringer's (Ringers, Lactated) 1,000 mls @ 100 mls/hr IV ASDIRECTED [facility] Lamotrigine (Lamotrigine) 100 mg PO BID [facility] Last Admin: 05/25/18 09:20 Dose: 100 mg Admin: 05/24/18 20:49 Dose: 100 mg Admin: 05/24/18 09:46 Dose: Admin: 05/23/18 20:49 Dose: 100 mg Nicotine (Habitrol) 21 mg TRDERM DAILY PRN PRN Reason: Other Ondansetron HCl (Zofran) 4 mg IVPUSH Q8H PRN PRN Reason: Nausea Pantoprazole Sodium (Protonix) 40 mg PO BID [facility] Last Admin: 05/25/18 09:20 Dose: 40 mg Admin: 05/24/18 20:49 Dose: 40 mg Admin: 05/24/18 09:47 Dose: Admin: 05/23/18 20:49 Dose: 40 mg Sodium Chloride (Saline Flush) 10 ml FLUSH ASDIRECTED PRN PRN Reason: Keep Vein Open Last Admin: 05/23/18 06:25 Dose: 10 ml - Plan Plan (Free Text/Narrative):: pt is stable will address the pain problems with more dilauid start diet and as for Incentive spirometer will change the IV to Lactated Ringers and treate the hypokalemis with K riders will have PT help with ambulation. ass stable plan as above JAIRO
[2018-05-25] MEDS: Lactated Ringers 1,000 ML IV SCH (17:29)
[2018-05-26] MEDS: HYDROmorphone 1 MG/ML Syringe IVPUSH PRN ×3 (01:14→09:22)
[2018-05-26] MEDS: Lactated Ringers 1,000 ML IV SCH ×2 (03:58→14:14)
[2018-05-26] MEDS: Piperacillin/Tazobactam 4.5 GM in Sodium Chloride 0.9% 100 ML IV SCH ×3 (05:04→21:53)
[2018-05-26] MEDS: DULoxetine 30 MG Cap PO SCH ×2 (09:24→18:04)
[2018-05-26] MEDS: Carvedilol 6.25 MG Tab PO SCH ×2 (09:24→20:26)
[2018-05-26] MEDS: lamoTRIgine 100 MG Tab PO SCH ×2 (09:24→20:25)
[2018-05-26] MEDS: Pantoprazole 40 MG Tab.CR PO SCH ×2 (09:24→20:26)
[2018-05-26] MEDS: carBAMazepine 200 MG Tab PO SCH ×2 (09:26→20:25)
[2018-05-26] MEDS ORDERED: HYDROmorphone 1 MG/ML Syringe IVPUSH PRN (11:45)
--- NOTE | 2018-05-26 11:46 | PCM.SURGPN ---
- General Info Date of Service: 05/26/18 POD#: 2 Functional Status: Reports: Pain Controlled - Review of Systems Pulmonary: Reports: No Symptoms Cardiovascular: Reports: No Symptoms Gastrointestinal: Reports: No Symptoms, Abdominal Pain (pain is the RUQ is improving) - Patient Data Vitals - Most Recent: Last Vital Signs Temp 98.2 F 05/26/18 08:11 Pulse 93 05/26/18 09:24 Resp 18 05/26/18 08:11 BP 118/67 05/26/18 09:24 Pulse Ox 93 L 05/26/18 08:11 Weight - Most Recent: 126.235 kg I&O - Last 24 Hours: Intake & Output 05/25/18 05/26/18 05/26/18 23:59 07:59 15:59 Intake Total 1010 2462 800 Output Total 1505 1310 260 Balance -495 1152 540 Lab Results Last 24 Hrs: Laboratory Results - last 24 hr 05/26/18 05/26/18 Range/Units 05:20 05:20 WBC 7.15 (4.23-9.07) K/mm3 RBC 3.57 L (4.63-6.08) M/mm3 Hgb 10.9 L (13.7-17.5) gm/L Hct 33.0 L (40.1-51.0) % MCV 92.4 H (79.0-92.2) fl MCH 30.5 (25.7-32.2) pg MCHC 33.0 (32.2-35.5) g/dl RDW Std Deviation 43.0 (35.1-43.9) fL Plt Count 209 (163-337) K/mm3 MPV 9.7 (9.4-12.3) fl Neut % (Auto) 76.6 H (34.0-67.9) % Lymph % (Auto) 12.4 L (21.8-53.1) % Major % (Auto) 9.1 (5.3-12.2) % Eos % (Auto) 1.7 (0.8-7.0) Baso % (Auto) 0.1 (0.1-1.2) % Neut # (Auto) 5.47 H (1.78-5.38) K/mm3 Lymph # (Auto) 0.89 L (1.32-3.57) K/mm3 Major # (Auto) 0.65 (0.30-0.82) K/mm3 Eos # (Auto) 0.12 (0.04-0.54) K/mm3 Baso # (Auto) 0.01 (0.01-0.08) K/mm3 Sodium 137 (136-145) mEq/L Potassium 3.0 L (3.5-5.1) mEq/L Chloride 102 (98-107) mEq/L Carbon Dioxide 25 (21-32) mEq/L Anion Gap 13.0 (5-15) BUN 9 (7-18) mg/dL Creatinine 0.9 (0.7-1.3) mg/dL Est Cr Clr Drug Dosing 113.77 mL/min Estimated GFR (MDRD) > 60 (>60) mL/min BUN/Creatinine Ratio 10.0 L (14-18) Glucose 80 (74-106) mg/dL Calcium 7.8 L (8.5-10.1) mg/dL Total Bilirubin 0.4 (0.2-1.0) mg/dL AST 12 L (15-37) U/L ALT 12 L (16-63) U/L Alkaline Phosphatase 60 (46-116) U/L Total Protein 5.9 L (6.4-8.2) g/dl Albumin 2.2 L (3.4-5.0) g/dl Globulin 3.7 gm/dL Albumin/Globulin Ratio 0.6 L (1-2) Med Orders - Current: Current Medications Hydrocodone Bitart/Acetaminophen ([place] 325-5 Mg) 1 tab PO Q6H PRN PRN Reason: Pain (moderate 4-6) Carbamazepine (Tegretol Tab) 400 mg PO BID [facility] Last Admin: 05/26/18 09:26 Dose: 400 mg Carvedilol (Coreg) 6.25 mg PO BID [facility] Last Admin: 05/26/18 09:24 Dose: 6.25 mg Duloxetine HCl (Cymbalta) 30 mg PO QPM [facility] Last Admin: 05/25/18 17:14 Dose: 30 mg Duloxetine HCl (Cymbalta) 60 mg PO QAM [facility] Last Admin: 05/26/18 09:24 Dose: 60 mg Hydromorphone HCl (Dilaudid) 1 mg IVPUSH Q1H PRN PRN Reason: pain Stop: 05/26/18 16:00 Last Admin: 05/26/18 09:22 Dose: 1 mg Piperacillin Sod/Tazobactam (Sod 4.5 gm/ Sodium Chloride) 100 mls @ 25 mls/hr IV Q8H [facility] Last Admin: 05/26/18 05:04 Dose: 25 mls/hr Lactated Ringer's (Ringers, Lactated) 1,000 mls @ 100 mls/hr IV ASDIRECTED [facility] Last Admin: 05/26/18 03:58 Dose: 100 mls/hr Lamotrigine (Lamotrigine) 100 mg PO BID [facility] Last Admin: 05/26/18 09:24 Dose: 100 mg Magnesium Hydroxide (Milk Of Magnesia) 30 ml PO DAILY [facility] Nicotine (Habitrol) 21 mg TRDERM DAILY PRN PRN Reason: Other Ondansetron HCl (Zofran) 4 mg IVPUSH Q8H PRN PRN Reason: Nausea Pantoprazole Sodium (Protonix) 40 mg PO BID [facility] Last Admin: 05/26/18 09:24 Dose: 40 mg Sodium Chloride (Saline Flush) 10 ml FLUSH ASDIRECTED PRN PRN Reason: Keep Vein Open Last Admin: 05/23/18 06:25 Dose: 10 ml Discontinued Medications Bupivacaine HCl (Marcaine 0.5%) Confirm Administered Dose 30 ml .ROUTE .STK-MED ONE Stop: 05/24/18 13:04 Last Admin: 05/24/18 13:54 Dose: 12.5 ml Fentanyl (Sublimaze) Confirm Administered Dose 250 mcg .ROUTE .STK-MED ONE Stop: 05/24/18 13:02 Fentanyl (Sublimaze) Confirm Administered Dose 100 mcg .ROUTE .STK-MED ONE Stop: 05/24/18 14:59 Glycopyrrolate () Confirm Administered Dose 1 mg .ROUTE .STK-MED ONE Stop: 05/24/18 15:30 Hydromorphone HCl (Dilaudid) 1 mg IVPUSH ONETIME ONE Stop: 05/23/18 05:48 Last Admin: 05/23/18 06:21 Dose: 1 mg Hydromorphone HCl (Dilaudid) 1 mg IVPUSH ONETIME ONE Stop: 05/23/18 08:01 Last Admin: 05/23/18 08:43 Dose: 1 mg Hydromorphone HCl (Dilaudid) 1 mg IVPUSH ONETIME ONE Stop: 05/23/18 10:47 Last Admin: 05/23/18 10:57 Dose: 1 mg Hydromorphone HCl (Dilaudid) 0.2 - 0.6 mg IVPUSH Q2H PRN PRN Reason: Pain Last Admin: 05/23/18 15:23 Dose: 0.6 mg Hydromorphone HCl (Dilaudid) 1 mg IVPUSH Q2H PRN PRN Reason: Pain Last Admin: 05/25/18 15:53 Dose: 1 mg Hydromorphone HCl (Dilaudid) Confirm Administered Dose 0.5 mg .ROUTE .STK-MED ONE Stop: 05/24/18 14:58 Hydromorphone HCl (Dilaudid) Confirm Administered Dose 0.5 mg .ROUTE .STK-MED ONE Stop: 05/24/18 14:58 Sodium Chloride (Normal Saline) 1,000 mls @ 999 mls/hr IV ONETIME [facility] Last Admin: 05/23/18 06:23 Dose: 999 mls/hr Potassium Chloride 10 meq/ (Premix) 100 mls @ 50 mls/hr IV ASDIRECTED ONE Stop: 05/23/18 09:19 Last Admin: 05/23/18 07:29 Dose: 50 mls/hr Levofloxacin/Dextrose 750 mg/ (Premix) 150 mls @ 100 mls/hr IV ONETIME ONE Stop: 05/23/18 12:16 Last Admin: 05/23/18 11:03 Dose: 100 mls/hr Piperacillin Sod/Tazobactam (Sod 4.5 gm/ Sodium Chloride) 100 mls @ 25 mls/hr IV Q8H [facility] Last Admin: 05/24/18 11:34 Dose: Not Given Potassium Chloride 10 meq/ (Premix) 100 mls @ 100 mls/hr IV ONETIME ONE Stop: 05/23/18 12:07 Last Admin: 05/23/18 11:19 Dose: 100 mls/hr Piperacillin Sod/Tazobactam (Sod 4.5 gm/ Sodium Chloride) 100 mls @ 25 mls/hr IV Q8H [facility] Sodium Chloride (Normal Saline) 1,000 mls @ 100 mls/hr IV ASDIRECTED [facility] Last Admin: 05/25/18 05:58 Dose: 100 mls/hr Potassium Chloride 10 meq/ (Premix) 100 mls @ 100 mls/hr IV Q1H [facility] Stop: 05/24/18 02:59 Last Admin: 05/24/18 03:12 Dose: 75 mls/hr Sodium Chloride (Normal Saline) 500 mls @ 50 mls/hr IV ASDIRECTED [facility] Stop: 05/24/18 03:00 Potassium Chloride 10 meq/ (Premix) 100 mls @ 100 mls/hr IV Q1H [facility] Stop: 05/24/18 12:14 Last Admin: 05/24/18 12:06 Dose: 100 mls/hr Magnesium Sulfate 2 gm/ Premix 50 mls @ 25 mls/hr IV ONETIME ONE Stop: 05/24/18 13:59 Last Admin: 05/24/18 13:09 Dose: 25 mls/hr Lidocaine HCl (Xylocaine-Mpf 1%) Confirm Administered Dose 4 mls @ as directed .ROUTE .STK-MED ONE Stop: 05/24/18 13:02 Potassium Chloride 10 meq/ (Premix) 100 mls @ 100 mls/hr IV Q1H [facility] Stop: 05/24/18 17:59 Last Admin: 05/24/18 17:27 Dose: 100 mls/hr Piperacillin Sod/Tazobactam (Sod 4.5 gm/ Sodium Chloride) 100 mls @ 200 mls/hr IV ONETIME ONE Stop: 05/24/18 14:14 Last Admin: 05/24/18 16:51 Dose: Not Given Lactated Ringer's (Ringers, Lactated) Confirm Administered Dose 1,000 mls @ as directed .ROUTE .STK-MED ONE Stop: 05/24/18 15:03 Lactated Ringer's (Ringers, Lactated) Confirm Administered Dose 1,000 mls @ as directed .ROUTE .STK-MED ONE Stop: 05/24/18 15:22 Potassium Chloride 10 meq/ (Premix) 100 mls @ 100 mls/hr IV Q1H [facility] Stop: 05/25/18 18:14 Last Admin: 05/25/18 20:11 Dose: 100 mls/hr Lidocaine/Epinephrine (Xylocaine 1% With Epinephrine 1:100,000) Confirm Administered Dose 20 ml .ROUTE .STK-MED ONE Stop: 05/24/18 13:04 Last Admin: 05/24/18 13:54 Dose: 12.5 ml Metoclopramide HCl (Reglan) 10 mg IVPUSH ONETIME ONE Stop: 05/23/18 10:47 Last Admin: 05/23/18 10:54 Dose: 10 mg Midazolam HCl (Versed 1 Mg/Ml) Confirm Administered Dose 2 mg .ROUTE .STK-MED ONE Stop: 05/24/18 13:02 Neostigmine Methylsulfate (Neostigmine) Confirm Administered Dose 5 mg .ROUTE .STK-MED ONE Stop: 05/24/18 15:30 Ondansetron HCl (Zofran) 4 mg IVPUSH ONETIME ONE Stop: 05/23/18 05:48 Last Admin: 05/23/18 06:20 Dose: 4 mg Ondansetron HCl (Zofran) Confirm Administered Dose 4 mg .ROUTE .STK-MED ONE Stop: 05/24/18 13:01 Potassium Chloride (Klor-Con M20) 40 meq PO ONETIME ONE Stop: 05/24/18 08:10 Last Admin: 05/24/18 08:37 Dose: 40 meq Propofol (Diprivan 20 Ml) Confirm Administered Dose 200 mg .ROUTE .STK-MED ONE Stop: 05/24/18 13:01 Rocuronium [place] (Zemuron) Confirm Administered Dose 50 mg .ROUTE .STK-MED ONE Stop: 05/24/18 13:01 Rocuronium [place] (Zemuron) Confirm Administered Dose 50 mg .ROUTE .STK-MED ONE Stop: 05/24/18 13:58 - Exam Wound/Incisions: Healing Well Lungs: Clear to Auscultation, Normal Respiratory Effort GI/Abdominal Exam: Tender (less tender in the RUQ the cholecystostomy tube is draining well serous fluid minimla in the JONATHAN) - Problem List Review Problem List Initiated/Reviewed/Updated: Yes - My Orders Last 24 Hours: Active Orders 24 hr Category Date Time Status Patient Status [ADT] Routine ADT 05/25/18 12:10 Active IS (RT) [RT Incentive Spirometry] [RC] Q2HWA Care 05/25/18 17:48 Active PT Evaluation and Treatment [CONS] Routine Cons 05/25/18 12:46 Active Clear Liquid Diet [DIET] Diet 05/25/18 Dinner Active Acetaminophen/HYDROcodone [[place] 325-5 MG] Med 05/26/18 11:38 Ordered 1 tab PO Q6H PRN HYDROmorphone [Dilaudid] Med 05/25/18 16:04 Active 1 mg IVPUSH Q1H PRN Lactated Ringers [Ringers, Lactated] 1,000 ml Med 05/25/18 16:15 Active IV ASDIRECTED Magnesium Hydroxide [Milk of Magnesia] Med 05/26/18 11:45 Ordered 30 ml PO DAILY Nicotine [Habitrol] Med 05/25/18 16:07 Active 21 mg TRDERM DAILY PRN Medication Orders Hydrocodone Bitart/Acetaminophen ([place] 325-5 Mg) 1 tab PO Q6H PRN PRN Reason: Pain (moderate 4-6) Carbamazepine (Tegretol Tab) 400 mg PO BID [facility] Last Admin: 05/26/18 09:26 Dose: 400 mg Admin: 05/25/18 20:08 Dose: 400 mg Admin: 05/25/18 09:15 Dose: 400 mg Admin: 05/24/18 20:50 Dose: 400 mg Admin: 05/24/18 09:47 Dose: Admin: 05/23/18 20:49 Dose: 400 mg Carvedilol (Coreg) 6.25 mg PO BID [facility] Last Admin: 05/26/18 09:24 Dose: 6.25 mg Admin: 05/25/18 20:10 Dose: 6.25 mg Admin: 05/25/18 09:16 Dose: 6.25 mg Admin: 05/24/18 20:49 Dose: 6.25 mg Admin: 05/24/18 10:00 Dose: 6.25 mg Admin: 05/23/18 20:49 Dose: 6.25 mg Duloxetine HCl (Cymbalta) 30 mg PO QPM [facility] Last Admin: 05/25/18 17:14 Dose: 30 mg Admin: 05/24/18 18:17 Dose: 30 mg Admin: 05/23/18 18:02 Dose: 30 mg Duloxetine HCl (Cymbalta) 60 mg PO QAM [facility] Last Admin: 05/26/18 09:24 Dose: 60 mg Admin: 05/25/18 09:15 Dose: 60 mg Admin: 05/24/18 09:46 Dose: Hydromorphone HCl (Dilaudid) 1 mg IVPUSH Q1H PRN PRN Reason: pain Stop: 05/26/18 16:00 Last Admin: 05/26/18 09:22 Dose: 1 mg Admin: 05/26/18 05:02 Dose: 1 mg Admin: 05/26/18 01:14 Dose: 1 mg Admin: 05/25/18 22:41 Dose: 1 mg Admin: 05/25/18 21:14 Dose: 1 mg Admin: 05/25/18 20:05 Dose: 1 mg Admin: 05/25/18 19:02 Dose: 1 mg Admin: 05/25/18 17:09 Dose: 1 mg Piperacillin Sod/Tazobactam (Sod 4.5 gm/ Sodium Chloride) 100 mls @ 25 mls/hr IV Q8H [facility] Last Admin: 05/26/18 05:04 Dose: 25 mls/hr Infusion: 05/26/18 01:18 Dose: 25 mls/hr Admin: 05/25/18 21:18 Dose: 25 mls/hr Infusion: 05/25/18 18:03 Dose: 25 mls/hr Admin: 05/25/18 14:03 Dose: 25 mls/hr Infusion: 05/25/18 09:14 Dose: 25 mls/hr Admin: 05/25/18 05:14 Dose: 25 mls/hr Infusion: 05/25/18 01:03 Dose: 25 mls/hr Admin: 05/24/18 21:03 Dose: 25 mls/hr Lactated Ringer's (Ringers, Lactated) 1,000 mls @ 100 mls/hr IV ASDIRECTED [facility] Last Admin: 05/26/18 03:58 Dose: 100 mls/hr Infusion: 05/26/18 03:29 Dose: 100 mls/hr Admin: 05/25/18 17:29 Dose: 100 mls/hr Lamotrigine (Lamotrigine) 100 mg PO BID [facility] Last Admin: 05/26/18 09:24 Dose: 100 mg Admin: 05/25/18 20:10 Dose: 100 mg Admin: 05/25/18 09:20 Dose: 100 mg Admin: 05/24/18 20:49 Dose: 100 mg Admin: 05/24/18 09:46 Dose: Admin: 05/23/18 20:49 Dose: 100 mg Magnesium Hydroxide (Milk Of Magnesia) 30 ml PO DAILY [facility] Nicotine (Habitrol) 21 mg TRDERM DAILY PRN PRN Reason: Other Ondansetron HCl (Zofran) 4 mg IVPUSH Q8H PRN PRN Reason: Nausea Pantoprazole Sodium (Protonix) 40 mg PO BID [facility] Last Admin: 05/26/18 09:24 Dose: 40 mg Admin: 05/25/18 20:09 Dose: 40 mg Admin: 05/25/18 09:20 Dose: 40 mg Admin: 05/24/18 20:49 Dose: 40 mg Admin: 05/24/18 09:47 Dose: Admin: 05/23/18 20:49 Dose: 40 mg Sodium Chloride (Saline Flush) 10 ml FLUSH ASDIRECTED PRN PRN Reason: Keep Vein Open Last Admin: 05/23/18 06:25 Dose: 10 ml - Plan Plan (Free Text/Narrative):: pt doing well the wbc and come down and the K is 3.0 ass improved plan give oral K and hydrocodone for pain see orders [facility]
[2018-05-26] MEDS: Acetaminophen/HYDROcodone 325-5 MG Tab PO PRN ×2 (11:58→18:04)
[2018-05-26] MEDS: Potassium Chloride 10% 20 MEQ/15 ML Soln 15 ML UD Cup PO SCH ×3 (11:59→20:25)
[2018-05-26] MEDS: Magnesium Hydroxide 400 MG/5 ML Susp 30 ML Cup PO SCH (11:59)
[2018-05-27] MEDS: Acetaminophen/HYDROcodone 325-5 MG Tab PO PRN ×5 (00:45→21:19)
[2018-05-27] MEDS: Lactated Ringers 1,000 ML IV SCH ×2 (04:05→18:36)
[2018-05-27] MEDS: DULoxetine 30 MG Cap PO SCH ×2 (08:10→17:20)
[2018-05-27] MEDS: Potassium Chloride 10% 20 MEQ/15 ML Soln 15 ML UD Cup PO SCH (08:10)
[2018-05-27] MEDS: Magnesium Hydroxide 400 MG/5 ML Susp 30 ML Cup PO SCH (08:10)
[2018-05-27] MEDS: carBAMazepine 200 MG Tab PO SCH ×2 (08:10→21:12)
[2018-05-27] MEDS: Carvedilol 6.25 MG Tab PO SCH ×2 (08:10→21:12)
[2018-05-27] MEDS: lamoTRIgine 100 MG Tab PO SCH ×2 (08:10→21:11)
[2018-05-27] MEDS: Pantoprazole 40 MG Tab.CR PO SCH ×2 (08:10→21:11)
[2018-05-27] MEDS: Piperacillin/Tazobactam 4.5 GM in Sodium Chloride 0.9% 100 ML IV SCH ×3 (08:21→23:03)
--- NOTE | 2018-05-27 12:15 | PCM.SURGPN ---
- General Info Date of Service: 05/27/18 POD#: 3 Functional Status: Reports: Pain Controlled - Review of Systems General: Reports: No Symptoms Gastrointestinal: Reports: No Symptoms - Patient Data Vitals - Most Recent: Last Vital Signs Temp 98.3 F 05/27/18 08:00 Pulse 64 05/27/18 08:10 Resp 16 05/27/18 08:00 BP 141/78 H 05/27/18 08:10 Pulse Ox 91 L 05/27/18 08:00 Weight - Most Recent: 124.466 kg I&O - Last 24 Hours: Intake & Output 05/26/18 05/27/18 05/27/18 23:59 07:59 15:59 Intake Total 2350 1753 Output Total 1730 2150 60 Balance 620 -397 -60 Lab Results Last 24 Hrs: Laboratory Results - last 24 hr 05/27/18 Range/Units 05:44 Sodium 139 (136-145) mEq/L Potassium 2.7 L (3.5-5.1) mEq/L Chloride 104 (98-107) mEq/L Carbon Dioxide 26 (21-32) mEq/L Anion Gap 11.7 (5-15) Med Orders - Current: Current Medications Hydrocodone Bitart/Acetaminophen ([place] 325-5 Mg) 1 tab PO Q4H PRN PRN Reason: Pain Carbamazepine (Tegretol Tab) 400 mg PO BID [facility] Last Admin: 05/27/18 08:10 Dose: 400 mg Carvedilol (Coreg) 6.25 mg PO BID [facility] Last Admin: 05/27/18 08:10 Dose: 6.25 mg Duloxetine HCl (Cymbalta) 30 mg PO QPM [facility] Last Admin: 05/26/18 18:04 Dose: 30 mg Duloxetine HCl (Cymbalta) 60 mg PO QAM [facility] Last Admin: 05/27/18 08:10 Dose: 60 mg Hydromorphone HCl (Dilaudid) 1 mg IVPUSH Q4H PRN PRN Reason: Pain (severe 7-10) Piperacillin Sod/Tazobactam (Sod 4.5 gm/ Sodium Chloride) 100 mls @ 25 mls/hr IV Q8H [facility] Last Admin: 05/27/18 08:21 Dose: 25 mls/hr Lactated Ringer's (Ringers, Lactated) 1,000 mls @ 75 mls/hr IV ASDIRECTED [facility] Last Admin: 05/27/18 04:05 Dose: 75 mls/hr Potassium Chloride 10 meq/ (Premix) 100 mls @ 100 mls/hr IV Q1H [facility] Stop: 05/27/18 18:29 Lamotrigine (Lamotrigine) 100 mg PO BID [facility] Last Admin: 05/27/18 08:10 Dose: 100 mg Magnesium Hydroxide (Milk Of Magnesia) 30 ml PO DAILY [facility] Last Admin: 05/27/18 08:10 Dose: 30 ml Nicotine (Habitrol) 21 mg TRDERM DAILY PRN PRN Reason: Other Ondansetron HCl (Zofran) 4 mg IVPUSH Q8H PRN PRN Reason: Nausea Pantoprazole Sodium (Protonix) 40 mg PO BID [facility] Last Admin: 05/27/18 08:10 Dose: 40 mg Sodium Chloride (Saline Flush) 10 ml FLUSH ASDIRECTED PRN PRN Reason: Keep Vein Open Last Admin: 05/23/18 06:25 Dose: 10 ml Zolpidem Tartrate (Ambien) 5 mg PO BEDTIME [facility] Discontinued Medications Hydrocodone Bitart/Acetaminophen ([place] 325-5 Mg) 1 tab PO Q6H PRN PRN Reason: Pain (moderate 4-6) Last Admin: 05/27/18 08:10 Dose: 1 tab Bupivacaine HCl (Marcaine 0.5%) Confirm Administered Dose 30 ml .ROUTE .STK-MED ONE Stop: 05/24/18 13:04 Last Admin: 05/24/18 13:54 Dose: 12.5 ml Fentanyl (Sublimaze) Confirm Administered Dose 250 mcg .ROUTE .STK-MED ONE Stop: 05/24/18 13:02 Fentanyl (Sublimaze) Confirm Administered Dose 100 mcg .ROUTE .STK-MED ONE Stop: 05/24/18 14:59 Glycopyrrolate () Confirm Administered Dose 1 mg .ROUTE .STK-MED ONE Stop: 05/24/18 15:30 Hydromorphone HCl (Dilaudid) 1 mg IVPUSH ONETIME ONE Stop: 05/23/18 05:48 Last Admin: 05/23/18 06:21 Dose: 1 mg Hydromorphone HCl (Dilaudid) 1 mg IVPUSH ONETIME ONE Stop: 05/23/18 08:01 Last Admin: 05/23/18 08:43 Dose: 1 mg Hydromorphone HCl (Dilaudid) 1 mg IVPUSH ONETIME ONE Stop: 05/23/18 10:47 Last Admin: 05/23/18 10:57 Dose: 1 mg Hydromorphone HCl (Dilaudid) 0.2 - 0.6 mg IVPUSH Q2H PRN PRN Reason: Pain Last Admin: 05/23/18 15:23 Dose: 0.6 mg Hydromorphone HCl (Dilaudid) 1 mg IVPUSH Q2H PRN PRN Reason: Pain Last Admin: 05/25/18 15:53 Dose: 1 mg Hydromorphone HCl (Dilaudid) Confirm Administered Dose 0.5 mg .ROUTE .STK-MED ONE Stop: 05/24/18 14:58 Hydromorphone HCl (Dilaudid) Confirm Administered Dose 0.5 mg .ROUTE .STK-MED ONE Stop: 05/24/18 14:58 Hydromorphone HCl (Dilaudid) 1 mg IVPUSH Q1H PRN PRN Reason: pain Stop: 05/26/18 16:00 Last Admin: 05/26/18 09:22 Dose: 1 mg Sodium Chloride (Normal Saline) 1,000 mls @ 999 mls/hr IV ONETIME [facility] Last Admin: 05/23/18 06:23 Dose: 999 mls/hr Potassium Chloride 10 meq/ (Premix) 100 mls @ 50 mls/hr IV ASDIRECTED ONE Stop: 05/23/18 09:19 Last Admin: 05/23/18 07:29 Dose: 50 mls/hr Levofloxacin/Dextrose 750 mg/ (Premix) 150 mls @ 100 mls/hr IV ONETIME ONE Stop: 05/23/18 12:16 Last Admin: 05/23/18 11:03 Dose: 100 mls/hr Piperacillin Sod/Tazobactam (Sod 4.5 gm/ Sodium Chloride) 100 mls @ 25 mls/hr IV Q8H [facility] Last Admin: 05/24/18 11:34 Dose: Not Given Potassium Chloride 10 meq/ (Premix) 100 mls @ 100 mls/hr IV ONETIME ONE Stop: 05/23/18 12:07 Last Admin: 05/23/18 11:19 Dose: 100 mls/hr Piperacillin Sod/Tazobactam (Sod 4.5 gm/ Sodium Chloride) 100 mls @ 25 mls/hr IV Q8H [facility] Sodium Chloride (Normal Saline) 1,000 mls @ 100 mls/hr IV ASDIRECTED [facility] Last Admin: 05/25/18 05:58 Dose: 100 mls/hr Potassium Chloride 10 meq/ (Premix) 100 mls @ 100 mls/hr IV Q1H [facility] Stop: 05/24/18 02:59 Last Admin: 05/24/18 03:12 Dose: 75 mls/hr Sodium Chloride (Normal Saline) 500 mls @ 50 mls/hr IV ASDIRECTED [facility] Stop: 05/24/18 03:00 Potassium Chloride 10 meq/ (Premix) 100 mls @ 100 mls/hr IV Q1H [facility] Stop: 05/24/18 12:14 Last Admin: 05/24/18 12:06 Dose: 100 mls/hr Magnesium Sulfate 2 gm/ Premix 50 mls @ 25 mls/hr IV ONETIME ONE Stop: 05/24/18 13:59 Last Admin: 05/24/18 13:09 Dose: 25 mls/hr Lidocaine HCl (Xylocaine-Mpf 1%) Confirm Administered Dose 4 mls @ as directed .ROUTE .STK-MED ONE Stop: 05/24/18 13:02 Potassium Chloride 10 meq/ (Premix) 100 mls @ 100 mls/hr IV Q1H [facility] Stop: 05/24/18 17:59 Last Admin: 05/24/18 17:27 Dose: 100 mls/hr Piperacillin Sod/Tazobactam (Sod 4.5 gm/ Sodium Chloride) 100 mls @ 200 mls/hr IV ONETIME ONE Stop: 05/24/18 14:14 Last Admin: 05/24/18 16:51 Dose: Not Given Lactated Ringer's (Ringers, Lactated) Confirm Administered Dose 1,000 mls @ as directed .ROUTE .STK-MED ONE Stop: 05/24/18 15:03 Lactated Ringer's (Ringers, Lactated) Confirm Administered Dose 1,000 mls @ as directed .ROUTE .STK-MED ONE Stop: 05/24/18 15:22 Potassium Chloride 10 meq/ (Premix) 100 mls @ 100 mls/hr IV Q1H [facility] Stop: 05/25/18 18:14 Last Admin: 05/25/18 20:11 Dose: 100 mls/hr Lactated Ringer's (Ringers, Lactated) 1,000 mls @ 100 mls/hr IV ASDIRECTED [facility] Last Admin: 05/26/18 03:58 Dose: 100 mls/hr Lidocaine/Epinephrine (Xylocaine 1% With Epinephrine 1:100,000) Confirm Administered Dose 20 ml .ROUTE .STK-MED ONE Stop: 05/24/18 13:04 Last Admin: 05/24/18 13:54 Dose: 12.5 ml Metoclopramide HCl (Reglan) 10 mg IVPUSH ONETIME ONE Stop: 05/23/18 10:47 Last Admin: 05/23/18 10:54 Dose: 10 mg Midazolam HCl (Versed 1 Mg/Ml) Confirm Administered Dose 2 mg .ROUTE .STK-MED ONE Stop: 05/24/18 13:02 Neostigmine Methylsulfate (Neostigmine) Confirm Administered Dose 5 mg .ROUTE .STK-MED ONE Stop: 05/24/18 15:30 Ondansetron HCl (Zofran) 4 mg IVPUSH ONETIME ONE Stop: 05/23/18 05:48 Last Admin: 05/23/18 06:20 Dose: 4 mg Ondansetron HCl (Zofran) Confirm Administered Dose 4 mg .ROUTE .STK-MED ONE Stop: 05/24/18 13:01 Potassium Chloride (Klor-Con M20) 40 meq PO ONETIME ONE Stop: 05/24/18 08:10 Last Admin: 05/24/18 08:37 Dose: 40 meq Potassium Chloride (Potassium Chloride Solution) 10 meq PO TID [facility] Last Admin: 05/27/18 08:10 Dose: 10 meq Propofol (Diprivan 20 Ml) Confirm Administered Dose 200 mg .ROUTE .STK-MED ONE Stop: 05/24/18 13:01 Rocuronium [place] (Zemuron) Confirm Administered Dose 50 mg .ROUTE .STK-MED ONE Stop: 05/24/18 13:01 Rocuronium [place] (Zemuron) Confirm Administered Dose 50 mg .ROUTE .STK-MED ONE Stop: 05/24/18 13:58 - Exam Wound/Incisions: Healing Well Lungs: Clear to Auscultation, Normal Respiratory Effort GI/Abdominal Exam: Normal Bowel Sounds, Other (300 cc of bile out of the cholecystostomy tube ) - Problem List Review Problem List Initiated/Reviewed/Updated: Yes - My Orders Last 24 Hours: Active Orders 24 hr Category Date Time Status Acetaminophen/HYDROcodone [[place] 325-5 MG] Med 05/27/18 12:08 Ordered 1 tab PO Q4H PRN HYDROmorphone [Dilaudid] Med 05/26/18 11:45 Active 1 mg IVPUSH Q4H PRN Lactated Ringers [Ringers, Lactated] 1,000 ml Med 05/26/18 12:00 Active IV ASDIRECTED Magnesium Hydroxide [Milk of Magnesia] Med 05/26/18 11:45 Active 30 ml PO DAILY Potassium Chloride [KCl 10 MEQ in Water 100 ML] 10 meq Med 05/27/18 12:30 Ordered Premix Bag 1 bag IV Q1H Potassium Chloride [Potassium Chloride Solution] Med 05/26/18 12:00 Stop Req 10 meq PO TID Zolpidem [Ambien] Med 05/27/18 21:00 Ordered 5 mg PO BEDTIME Medication Orders Hydrocodone Bitart/Acetaminophen ([place] 325-5 Mg) 1 tab PO Q4H PRN PRN Reason: Pain Carbamazepine (Tegretol Tab) 400 mg PO BID [facility] Last Admin: 05/27/18 08:10 Dose: 400 mg Admin: 05/26/18 20:25 Dose: 400 mg Admin: 05/26/18 09:26 Dose: 400 mg Admin: 05/25/18 20:08 Dose: 400 mg Admin: 05/25/18 09:15 Dose: 400 mg Admin: 05/24/18 20:50 Dose: 400 mg Admin: 05/24/18 09:47 Dose: Admin: 05/23/18 20:49 Dose: 400 mg Carvedilol (Coreg) 6.25 mg PO BID [facility] Last Admin: 05/27/18 08:10 Dose: 6.25 mg Admin: 05/26/18 20:26 Dose: 6.25 mg Admin: 05/26/18 09:24 Dose: 6.25 mg Admin: 05/25/18 20:10 Dose: 6.25 mg Admin: 05/25/18 09:16 Dose: 6.25 mg Admin: 05/24/18 20:49 Dose: 6.25 mg Admin: 05/24/18 10:00 Dose: 6.25 mg Admin: 05/23/18 20:49 Dose: 6.25 mg Duloxetine HCl (Cymbalta) 30 mg PO QPM [facility] Last Admin: 05/26/18 18:04 Dose: 30 mg Admin: 05/25/18 17:14 Dose: 30 mg Admin: 05/24/18 18:17 Dose: 30 mg Admin: 05/23/18 18:02 Dose: 30 mg Duloxetine HCl (Cymbalta) 60 mg PO QAM [facility] Last Admin: 05/27/18 08:10 Dose: 60 mg Admin: 05/26/18 09:24 Dose: 60 mg Admin: 05/25/18 09:15 Dose: 60 mg Admin: 05/24/18 09:46 Dose: Hydromorphone HCl (Dilaudid) 1 mg IVPUSH Q4H PRN PRN Reason: Pain (severe 7-10) Piperacillin Sod/Tazobactam (Sod 4.5 gm/ Sodium Chloride) 100 mls @ 25 mls/hr IV Q8H [facility] Last Admin: 05/27/18 08:21 Dose: 25 mls/hr Infusion: 05/27/18 01:53 Dose: 25 mls/hr Admin: 05/26/18 21:53 Dose: 25 mls/hr Infusion: 05/26/18 18:03 Dose: 25 mls/hr Admin: 05/26/18 14:03 Dose: 25 mls/hr Infusion: 05/26/18 09:04 Dose: 25 mls/hr Admin: 05/26/18 05:04 Dose: 25 mls/hr Infusion: 05/26/18 01:18 Dose: 25 mls/hr Admin: 05/25/18 21:18 Dose: 25 mls/hr Infusion: 05/25/18 18:03 Dose: 25 mls/hr Admin: 05/25/18 14:03 Dose: 25 mls/hr Infusion: 05/25/18 09:14 Dose: 25 mls/hr Admin: 05/25/18 05:14 Dose: 25 mls/hr Infusion: 05/25/18 01:03 Dose: 25 mls/hr Admin: 05/24/18 21:03 Dose: 25 mls/hr Lactated Ringer's (Ringers, Lactated) 1,000 mls @ 75 mls/hr IV ASDIRECTED [facility] Last Admin: 05/27/18 04:05 Dose: 75 mls/hr Infusion: 05/27/18 03:34 Dose: 75 mls/hr Admin: 05/26/18 14:14 Dose: 75 mls/hr Potassium Chloride 10 meq/ (Premix) 100 mls @ 100 mls/hr IV Q1H [facility] Stop: 05/27/18 18:29 Lamotrigine (Lamotrigine) 100 mg PO BID [facility] Last Admin: 05/27/18 08:10 Dose: 100 mg Admin: 05/26/18 20:25 Dose: 100 mg Admin: 05/26/18 09:24 Dose: 100 mg Admin: 05/25/18 20:10 Dose: 100 mg Admin: 05/25/18 09:20 Dose: 100 mg Admin: 05/24/18 20:49 Dose: 100 mg Admin: 05/24/18 09:46 Dose: Admin: 05/23/18 20:49 Dose: 100 mg Magnesium Hydroxide (Milk Of Magnesia) 30 ml PO DAILY [facility] Last Admin: 05/27/18 08:10 Dose: 30 ml Admin: 05/26/18 11:59 Dose: 30 ml Nicotine (Habitrol) 21 mg TRDERM DAILY PRN PRN Reason: Other Ondansetron HCl (Zofran) 4 mg IVPUSH Q8H PRN PRN Reason: Nausea Pantoprazole Sodium (Protonix) 40 mg PO BID [facility] Last Admin: 05/27/18 08:10 Dose: 40 mg Admin: 05/26/18 20:26 Dose: 40 mg Admin: 05/26/18 09:24 Dose: 40 mg Admin: 05/25/18 20:09 Dose: 40 mg Admin: 05/25/18 09:20 Dose: 40 mg Admin: 05/24/18 20:49 Dose: 40 mg Admin: 05/24/18 09:47 Dose: Admin: 05/23/18 20:49 Dose: 40 mg Sodium Chloride (Saline Flush) 10 ml FLUSH ASDIRECTED PRN PRN Reason: Keep Vein Open Last Admin: 05/23/18 06:25 Dose: 10 ml Zolpidem Tartrate (Ambien) 5 mg PO BEDTIME [facility] - Plan Plan (Free Text/Narrative):: pt having bowel movments and his pain is lease abdomen is softer and tubes are working ass stable will advance diet give more K and give more frequent vicodin as per patient JAIRO
[2018-05-27] MEDS ORDERED: Magnesium Hydroxide 400 MG/5 ML Susp 30 ML Cup PO PRN (12:18)
[2018-05-27] MEDS: Potassium Chloride 10 MEQ in Premix Bag 1 BAG IV SCH ×6 (12:56→21:04)
[2018-05-27] MEDS: Potassium Chloride 10 MEQ Tab.ER PO SCH ×2 (14:31→21:12)
[2018-05-27] MEDS ORDERED: Zolpidem 5 MG Tab PO SCH (21:00)
[2018-05-27] MEDS: Temazepam 7.5 MG Cap PO SCH (21:10)
[2018-05-28] MEDS: Acetaminophen/HYDROcodone 325-5 MG Tab PO PRN ×5 (02:01→19:42)
[2018-05-28] MEDS: Piperacillin/Tazobactam 4.5 GM in Sodium Chloride 0.9% 100 ML IV SCH ×3 (06:11→21:33)
[2018-05-28] MEDS: DULoxetine 30 MG Cap PO SCH ×2 (08:20→17:29)
[2018-05-28] MEDS: Potassium Chloride 10 MEQ Tab.ER PO SCH ×3 (08:20→21:30)
[2018-05-28] MEDS: Carvedilol 6.25 MG Tab PO SCH ×2 (08:21→21:31)
[2018-05-28] MEDS: lamoTRIgine 100 MG Tab PO SCH ×2 (08:21→21:31)
[2018-05-28] MEDS: Pantoprazole 40 MG Tab.CR PO SCH ×2 (08:24→21:32)
[2018-05-28] MEDS: carBAMazepine 200 MG Tab PO SCH ×2 (08:24→21:31)
--- NOTE | 2018-05-28 09:23 | PCM.SURGPN ---
- General Info Date of Service: 05/28/18 POD#: 4 Functional Status: Reports: Pain Controlled - Review of Systems General: Reports: No Symptoms Gastrointestinal: Reports: No Symptoms - Patient Data Vitals - Most Recent: Last Vital Signs Temp 98.8 F 05/28/18 07:53 Pulse 69 05/28/18 08:23 Resp 16 05/28/18 07:53 BP 143/95 H 05/28/18 08:21 Pulse Ox 97 05/28/18 08:23 Weight - Most Recent: 123.876 kg I&O - Last 24 Hours: Intake & Output 05/27/18 05/28/18 05/28/18 23:59 07:59 15:59 Intake Total 2252 1576 Output Total 2139 9810 Balance -283 -974 Lab Results Last 24 Hrs: Laboratory Results - last 24 hr 05/28/18 Range/Units 06:04 Sodium 140 (136-145) mEq/L Potassium 3.0 L (3.5-5.1) mEq/L Chloride 102 (98-107) mEq/L Carbon Dioxide 27 (21-32) mEq/L Anion Gap 14.0 (5-15) BUN 4 L (7-18) mg/dL Creatinine 0.7 (0.7-1.3) mg/dL Est Cr Clr Drug Dosing 146.27 mL/min Estimated GFR (MDRD) > 60 (>60) mL/min BUN/Creatinine Ratio 5.7 L (14-18) Glucose 88 (74-106) mg/dL Calcium 8.4 L (8.5-10.1) mg/dL Magnesium 1.4 L (1.8-2.4) mg/dl Med Orders - Current: Current Medications Hydrocodone Bitart/Acetaminophen ([place]isenheimer 325-5 Mg) 1 tab PO Q4H PRN PRN Reason: Pain Last Admin: 05/28/18 06:39 Dose: 1 tab Carbamazepine (Tegretol Tab) 400 mg PO BID [facility] Last Admin: 05/28/18 08:24 Dose: 400 mg Carvedilol (Coreg) 6.25 mg PO BID [facility] Last Admin: 05/28/18 08:21 Dose: 6.25 mg Duloxetine HCl (Cymbalta) 30 mg PO QPM [facility] Last Admin: 05/27/18 17:20 Dose: 30 mg Duloxetine HCl (Cymbalta) 60 mg PO QAM [facility] Last Admin: 05/28/18 08:20 Dose: 60 mg Hydromorphone HCl (Dilaudid) 1 mg IVPUSH Q4H PRN PRN Reason: Pain (severe 7-10) Piperacillin Sod/Tazobactam (Sod 4.5 gm/ Sodium Chloride) 100 mls @ 25 mls/hr IV Q8H [facility] Last Admin: 05/28/18 06:11 Dose: 25 mls/hr Lamotrigine (Lamotrigine) 100 mg PO BID [facility] Last Admin: 05/28/18 08:21 Dose: 100 mg Magnesium Hydroxide (Milk Of Magnesia) 30 ml PO DAILY PRN PRN Reason: Constipation Nicotine (Habitrol) 21 mg TRDERM DAILY PRN PRN Reason: Other Ondansetron HCl (Zofran) 4 mg IVPUSH Q8H PRN PRN Reason: Nausea Pantoprazole Sodium (Protonix) 40 mg PO BID [facility] Last Admin: 05/28/18 08:24 Dose: 40 mg Potassium Chloride (Klor-Con 10) 10 meq PO TID [facility] Last Admin: 05/28/18 08:20 Dose: 10 meq Sodium Chloride (Saline Flush) 10 ml FLUSH ASDIRECTED PRN PRN Reason: Keep Vein Open Last Admin: 05/23/18 06:25 Dose: 10 ml Temazepam (Restoril) 7.5 mg PO BEDTIME [facility] Last Admin: 05/27/18 21:10 Dose: 7.5 mg Discontinued Medications Hydrocodone Bitart/Acetaminophen ([place]isenheimer 325-5 Mg) 1 tab PO Q6H PRN PRN Reason: Pain (moderate 4-6) Last Admin: 05/27/18 08:10 Dose: 1 tab Bupivacaine HCl (Marcaine 0.5%) Confirm Administered Dose 30 ml .ROUTE .STK-MED ONE Stop: 05/24/18 13:04 Last Admin: 05/24/18 13:54 Dose: 12.5 ml Fentanyl (Sublimaze) Confirm Administered Dose 250 mcg .ROUTE .STK-MED ONE Stop: 05/24/18 13:02 Fentanyl (Sublimaze) Confirm Administered Dose 100 mcg .ROUTE .STK-MED ONE Stop: 05/24/18 14:59 Glycopyrrolate () Confirm Administered Dose 1 mg .ROUTE .STK-MED ONE Stop: 05/24/18 15:30 Hydromorphone HCl (Dilaudid) 1 mg IVPUSH ONETIME ONE Stop: 05/23/18 05:48 Last Admin: 05/23/18 06:21 Dose: 1 mg Hydromorphone HCl (Dilaudid) 1 mg IVPUSH ONETIME ONE Stop: 05/23/18 08:01 Last Admin: 05/23/18 08:43 Dose: 1 mg Hydromorphone HCl (Dilaudid) 1 mg IVPUSH ONETIME ONE Stop: 05/23/18 10:47 Last Admin: 05/23/18 10:57 Dose: 1 mg Hydromorphone HCl (Dilaudid) 0.2 - 0.6 mg IVPUSH Q2H PRN PRN Reason: Pain Last Admin: 05/23/18 15:23 Dose: 0.6 mg Hydromorphone HCl (Dilaudid) 1 mg IVPUSH Q2H PRN PRN Reason: Pain Last Admin: 05/25/18 15:53 Dose: 1 mg Hydromorphone HCl (Dilaudid) Confirm Administered Dose 0.5 mg .ROUTE .STK-MED ONE Stop: 05/24/18 14:58 Hydromorphone HCl (Dilaudid) Confirm Administered Dose 0.5 mg .ROUTE .STK-MED ONE Stop: 05/24/18 14:58 Hydromorphone HCl (Dilaudid) 1 mg IVPUSH Q1H PRN PRN Reason: pain Stop: 05/26/18 16:00 Last Admin: 05/26/18 09:22 Dose: 1 mg Sodium Chloride (Normal Saline) 1,000 mls @ 999 mls/hr IV ONETIME [facility] Last Admin: 05/23/18 06:23 Dose: 999 mls/hr Potassium Chloride 10 meq/ (Premix) 100 mls @ 50 mls/hr IV ASDIRECTED ONE Stop: 05/23/18 09:19 Last Admin: 05/23/18 07:29 Dose: 50 mls/hr Levofloxacin/Dextrose 750 mg/ (Premix) 150 mls @ 100 mls/hr IV ONETIME ONE Stop: 05/23/18 12:16 Last Admin: 05/23/18 11:03 Dose: 100 mls/hr Piperacillin Sod/Tazobactam (Sod 4.5 gm/ Sodium Chloride) 100 mls @ 25 mls/hr IV Q8H [facility] Last Admin: 05/24/18 11:34 Dose: Not Given Potassium Chloride 10 meq/ (Premix) 100 mls @ 100 mls/hr IV ONETIME ONE Stop: 05/23/18 12:07 Last Admin: 05/23/18 11:19 Dose: 100 mls/hr Piperacillin Sod/Tazobactam (Sod 4.5 gm/ Sodium Chloride) 100 mls @ 25 mls/hr IV Q8H [facility] Sodium Chloride (Normal Saline) 1,000 mls @ 100 mls/hr IV ASDIRECTED [facility] Last Admin: 05/25/18 05:58 Dose: 100 mls/hr Potassium Chloride 10 meq/ (Premix) 100 mls @ 100 mls/hr IV Q1H [facility] Stop: 05/24/18 02:59 Last Admin: 05/24/18 03:12 Dose: 75 mls/hr Sodium Chloride (Normal Saline) 500 mls @ 50 mls/hr IV ASDIRECTED [facility] Stop: 05/24/18 03:00 Potassium Chloride 10 meq/ (Premix) 100 mls @ 100 mls/hr IV Q1H [facility] Stop: 05/24/18 12:14 Last Admin: 05/24/18 12:06 Dose: 100 mls/hr Magnesium Sulfate 2 gm/ Premix 50 mls @ 25 mls/hr IV ONETIME ONE Stop: 05/24/18 13:59 Last Admin: 05/24/18 13:09 Dose: 25 mls/hr Lidocaine HCl (Xylocaine-Mpf 1%) Confirm Administered Dose 4 mls @ as directed .ROUTE .STK-MED ONE Stop: 05/24/18 13:02 Potassium Chloride 10 meq/ (Premix) 100 mls @ 100 mls/hr IV Q1H [facility] Stop: 05/24/18 17:59 Last Admin: 05/24/18 17:27 Dose: 100 mls/hr Piperacillin Sod/Tazobactam (Sod 4.5 gm/ Sodium Chloride) 100 mls @ 200 mls/hr IV ONETIME ONE Stop: 05/24/18 14:14 Last Admin: 05/24/18 16:51 Dose: Not Given Lactated Ringer's (Ringers, Lactated) Confirm Administered Dose 1,000 mls @ as directed .ROUTE .STK-MED ONE Stop: 05/24/18 15:03 Lactated Ringer's (Ringers, Lactated) Confirm Administered Dose 1,000 mls @ as directed .ROUTE .STK-MED ONE Stop: 05/24/18 15:22 Potassium Chloride 10 meq/ (Premix) 100 mls @ 100 mls/hr IV Q1H [facility] Stop: 05/25/18 18:14 Last Admin: 05/25/18 20:11 Dose: 100 mls/hr Lactated Ringer's (Ringers, Lactated) 1,000 mls @ 100 mls/hr IV ASDIRECTED [facility] Last Admin: 05/26/18 03:58 Dose: 100 mls/hr Lactated Ringer's (Ringers, Lactated) 1,000 mls @ 75 mls/hr IV ASDIRECTED [facility] Last Admin: 05/27/18 18:36 Dose: 75 mls/hr Potassium Chloride 10 meq/ (Premix) 100 mls @ 100 mls/hr IV Q1H [facility] Stop: 05/27/18 18:29 Last Admin: 05/27/18 21:04 Dose: 100 mls/hr Lidocaine/Epinephrine (Xylocaine 1% With Epinephrine 1:100,000) Confirm Administered Dose 20 ml .ROUTE .STK-MED ONE Stop: 05/24/18 13:04 Last Admin: 05/24/18 13:54 Dose: 12.5 ml Magnesium Hydroxide (Milk Of Magnesia) 30 ml PO DAILY [facility] Last Admin: 05/27/18 08:10 Dose: 30 ml Metoclopramide HCl (Reglan) 10 mg IVPUSH ONETIME ONE Stop: 05/23/18 10:47 Last Admin: 05/23/18 10:54 Dose: 10 mg Midazolam HCl (Versed 1 Mg/Ml) Confirm Administered Dose 2 mg .ROUTE .STK-MED ONE Stop: 05/24/18 13:02 Neostigmine Methylsulfate (Neostigmine) Confirm Administered Dose 5 mg .ROUTE .STK-MED ONE Stop: 05/24/18 15:30 Ondansetron HCl (Zofran) 4 mg IVPUSH ONETIME ONE Stop: 05/23/18 05:48 Last Admin: 05/23/18 06:20 Dose: 4 mg Ondansetron HCl (Zofran) Confirm Administered Dose 4 mg .ROUTE .STK-MED ONE Stop: 05/24/18 13:01 Potassium Chloride (Klor-Con M20) 40 meq PO ONETIME ONE Stop: 05/24/18 08:10 Last Admin: 05/24/18 08:37 Dose: 40 meq Potassium Chloride (Potassium Chloride Solution) 10 meq PO TID [facility] Last Admin: 05/27/18 08:10 Dose: 10 meq Propofol (Diprivan 20 Ml) Confirm Administered Dose 200 mg .ROUTE .STK-MED ONE Stop: 05/24/18 13:01 Rocuronium [place] (Zemuron) Confirm Administered Dose 50 mg .ROUTE .STK-MED ONE Stop: 05/24/18 13:01 Rocuronium [place] (Zemuron) Confirm Administered Dose 50 mg .ROUTE .STK-MED ONE Stop: 05/24/18 13:58 - Exam GI/Abdominal Exam: Normal Bowel Sounds, Soft, Non-Tender, No Organomegaly, No Distention, No Abnormal Bruit, No Mass, Pelvis Stable - Problem List Review Problem List Initiated/Reviewed/Updated: Yes - My Orders Last 24 Hours: Active Orders 24 hr Category Date Time Status Regular Diet [DIET] Diet 05/27/18 Dinner Active Fluoro Over 1Hr w Rad [CR] Routine Exams 05/28/18 09:20 Ordered Acetaminophen/HYDROcodone [Misenheimer 325-5 MG] Med 05/27/18 12:08 Active 1 tab PO Q4H PRN Magnesium Hydroxide [Milk of Magnesia] Med 05/27/18 12:18 Active 30 ml PO DAILY PRN Potassium Chloride [Klor-Con 10] Med 05/27/18 15:00 Active 10 meq PO TID Temazepam [Restoril] Med 05/27/18 21:00 Active 7.5 mg PO BEDTIME Medication Orders Hydrocodone Bitart/Acetaminophen ([place]isenheimer 325-5 Mg) 1 tab PO Q4H PRN PRN Reason: Pain Last Admin: 05/28/18 06:39 Dose: 1 tab Admin: 05/28/18 02:01 Dose: 1 tab Admin: 05/27/18 21:19 Dose: 1 tab Admin: 05/27/18 17:19 Dose: 1 tab Admin: 05/27/18 13:08 Dose: 1 tab Carbamazepine (Tegretol Tab) 400 mg PO BID [facility] Last Admin: 05/28/18 08:24 Dose: 400 mg Admin: 05/27/18 21:12 Dose: 400 mg Admin: 05/27/18 08:10 Dose: 400 mg Admin: 05/26/18 20:25 Dose: 400 mg Admin: 05/26/18 09:26 Dose: 400 mg Admin: 05/25/18 20:08 Dose: 400 mg Admin: 05/25/18 09:15 Dose: 400 mg Admin: 05/24/18 20:50 Dose: 400 mg Admin: 05/24/18 09:47 Dose: Admin: 05/23/18 20:49 Dose: 400 mg Carvedilol (Coreg) 6.25 mg PO BID [facility] Last Admin: 05/28/18 08:21 Dose: 6.25 mg Admin: 05/27/18 21:12 Dose: 6.25 mg Admin: 05/27/18 08:10 Dose: 6.25 mg Admin: 05/26/18 20:26 Dose: 6.25 mg Admin: 05/26/18 09:24 Dose: 6.25 mg Admin: 05/25/18 20:10 Dose: 6.25 mg Admin: 05/25/18 09:16 Dose: 6.25 mg Admin: 05/24/18 20:49 Dose: 6.25 mg Admin: 05/24/18 10:00 Dose: 6.25 mg Admin: 05/23/18 20:49 Dose: 6.25 mg Duloxetine HCl (Cymbalta) 30 mg PO QPM [facility] Last Admin: 05/27/18 17:20 Dose: 30 mg Admin: 05/26/18 18:04 Dose: 30 mg Admin: 05/25/18 17:14 Dose: 30 mg Admin: 05/24/18 18:17 Dose: 30 mg Admin: 05/23/18 18:02 Dose: 30 mg Duloxetine HCl (Cymbalta) 60 mg PO QAM [facility] Last Admin: 05/28/18 08:20 Dose: 60 mg Admin: 05/27/18 08:10 Dose: 60 mg Admin: 05/26/18 09:24 Dose: 60 mg Admin: 05/25/18 09:15 Dose: 60 mg Admin: 05/24/18 09:46 Dose: Hydromorphone HCl (Dilaudid) 1 mg IVPUSH Q4H PRN PRN Reason: Pain (severe 7-10) Piperacillin Sod/Tazobactam (Sod 4.5 gm/ Sodium Chloride) 100 mls @ 25 mls/hr IV Q8H [facility] Last Admin: 05/28/18 06:11 Dose: 25 mls/hr Infusion: 05/28/18 03:03 Dose: 25 mls/hr Admin: 05/27/18 23:03 Dose: 25 mls/hr Infusion: 05/27/18 17:06 Dose: 25 mls/hr Admin: 05/27/18 13:06 Dose: 25 mls/hr Infusion: 05/27/18 12:21 Dose: 25 mls/hr Admin: 05/27/18 08:21 Dose: 25 mls/hr Infusion: 05/27/18 01:53 Dose: 25 mls/hr Admin: 05/26/18 21:53 Dose: 25 mls/hr Infusion: 05/26/18 18:03 Dose: 25 mls/hr Admin: 05/26/18 14:03 Dose: 25 mls/hr Infusion: 05/26/18 09:04 Dose: 25 mls/hr Admin: 05/26/18 05:04 Dose: 25 mls/hr Infusion: 05/26/18 01:18 Dose: 25 mls/hr Admin: 05/25/18 21:18 Dose: 25 mls/hr Infusion: 05/25/18 18:03 Dose: 25 mls/hr Admin: 05/25/18 14:03 Dose: 25 mls/hr Infusion: 05/25/18 09:14 Dose: 25 mls/hr Admin: 05/25/18 05:14 Dose: 25 mls/hr Infusion: 05/25/18 01:03 Dose: 25 mls/hr Admin: 05/24/18 21:03 Dose: 25 mls/hr Lamotrigine (Lamotrigine) 100 mg PO BID [facility] Last Admin: 05/28/18 08:21 Dose: 100 mg Admin: 05/27/18 21:11 Dose: 100 mg Admin: 05/27/18 08:10 Dose: 100 mg Admin: 05/26/18 20:25 Dose: 100 mg Admin: 05/26/18 09:24 Dose: 100 mg Admin: 05/25/18 20:10 Dose: 100 mg Admin: 05/25/18 09:20 Dose: 100 mg Admin: 05/24/18 20:49 Dose: 100 mg Admin: 05/24/18 09:46 Dose: Admin: 05/23/18 20:49 Dose: 100 mg Magnesium Hydroxide (Milk Of Magnesia) 30 ml PO DAILY PRN PRN Reason: Constipation Nicotine (Habitrol) 21 mg TRDERM DAILY PRN PRN Reason: Other Ondansetron HCl (Zofran) 4 mg IVPUSH Q8H PRN PRN Reason: Nausea Pantoprazole Sodium (Protonix) 40 mg PO BID [facility] Last Admin: 05/28/18 08:24 Dose: 40 mg Admin: 05/27/18 21:11 Dose: 40 mg Admin: 05/27/18 08:10 Dose: 40 mg Admin: 05/26/18 20:26 Dose: 40 mg Admin: 05/26/18 09:24 Dose: 40 mg Admin: 05/25/18 20:09 Dose: 40 mg Admin: 05/25/18 09:20 Dose: 40 mg Admin: 05/24/18 20:49 Dose: 40 mg Admin: 05/24/18 09:47 Dose: Admin: 05/23/18 20:49 Dose: 40 mg Potassium Chloride (Klor-Con 10) 10 meq PO TID [facility] Last Admin: 05/28/18 08:20 Dose: 10 meq Admin: 05/27/18 21:12 Dose: 10 meq Admin: 05/27/18 14:31 Dose: 10 meq Sodium Chloride (Saline Flush) 10 ml FLUSH ASDIRECTED PRN PRN Reason: Keep Vein Open Last Admin: 05/23/18 06:25 Dose: 10 ml Temazepam (Restoril) 7.5 mg PO BEDTIME [facility] Last Admin: 05/27/18 21:10 Dose: 7.5 mg - Plan Plan (Free Text/Narrative):: persistent low K will ask IM to see patient advanced the JONATHAN drain and will obtain a cholangiogram via the cholecystostomy tube
[2018-05-28] MEDS ORDERED: Magnesium Sulfate/Water 4 GM in Premix Bag 1 BAG IV ONE ×3 (11:01→18:00)
[2018-05-28] MEDS: Potassium Chloride 20 MEQ Tab.ER PO SCH ×2 (15:05→21:29)
[2018-05-28] MEDS: Temazepam 7.5 MG Cap PO SCH (21:30)
[2018-05-29] MEDS: Acetaminophen/HYDROcodone 325-5 MG Tab PO PRN ×3 (00:48→09:30)
[2018-05-29] MEDS: Piperacillin/Tazobactam 4.5 GM in Sodium Chloride 0.9% 100 ML IV SCH (05:28)
[2018-05-29] MEDS: lamoTRIgine 100 MG Tab PO SCH (08:59)
[2018-05-29] MEDS: Carvedilol 6.25 MG Tab PO SCH (09:00)
[2018-05-29] MEDS: Pantoprazole 40 MG Tab.CR PO SCH (09:01)
[2018-05-29] MEDS: Potassium Chloride 10 MEQ Tab.ER PO SCH (09:02)
[2018-05-29] MEDS: Potassium Chloride 20 MEQ Tab.ER PO SCH (09:03)
[2018-05-29] MEDS: carBAMazepine 200 MG Tab PO SCH (09:04)
[2018-05-29] MEDS: DULoxetine 30 MG Cap PO SCH (09:06)
[2018-05-29] MEDS ORDERED: Iopamidol 755 MG/ML 50 ML Bottle IVPUSH ONE (10:24)
[2018-05-29] MEDS ORDERED: Polyethylene Glycol 3350 Powder 17 GM Packet PO PRN (11:51)
[2018-05-29] MEDS ORDERED: EPINEPHrine 0.3 MG/0.3 ML Pen Autoinjector IM PRN (11:51)
--- NOTE | 2018-05-29 11:56 | PCM.SURGPN ---
- General Info Date of Service: 05/29/18 POD#: 4 - Patient Data Vitals - Most Recent: Last Vital Signs Temp 97.9 F 05/29/18 08:28 Pulse 77 05/29/18 09:00 Resp 16 05/29/18 08:28 BP 128/78 05/29/18 09:00 Pulse Ox 94 L 05/29/18 08:28 Weight - Most Recent: 119.658 kg I&O - Last 24 Hours: Intake & Output 05/28/18 05/29/18 05/29/18 23:59 07:59 15:59 Intake Total 3020 700 0 Output Total 2250 1900 Balance 770 -1200 0 Lab Results Last 24 Hrs: Laboratory Results - last 24 hr 05/29/18 05/29/18 Range/Units 08:45 08:45 WBC 6.07 (4.23-9.07) K/mm3 RBC 4.19 L (4.63-6.08) M/mm3 Hgb 12.7 L (13.7-17.5) gm/L Hct 38.5 L (40.1-51.0) % MCV 91.9 (79.0-92.2) fl MCH 30.3 (25.7-32.2) pg MCHC 33.0 (32.2-35.5) g/dl RDW Std Deviation 45.2 H (35.1-43.9) fL Plt Count 290 (163-337) K/mm3 MPV 9.3 L (9.4-12.3) fl Neut % (Auto) 69.5 H (34.0-67.9) % Lymph % (Auto) 17.5 L (21.8-53.1) % [place] % (Auto) 9.9 (5.3-12.2) % Eos % (Auto) 2.3 (0.8-7.0) Baso % (Auto) 0.3 (0.1-1.2) % Neut # (Auto) 4.22 (1.78-5.38) K/mm3 Lymph # (Auto) 1.06 L (1.32-3.57) K/mm3 [place] # (Auto) 0.60 (0.30-0.82) K/mm3 Eos # (Auto) 0.14 (0.04-0.54) K/mm3 Baso # (Auto) 0.02 (0.01-0.08) K/mm3 Sodium 139 (136-145) mEq/L Potassium 3.3 L (3.5-5.1) mEq/L Chloride 101 (98-107) mEq/L Carbon Dioxide 28 (21-32) mEq/L Anion Gap 13.3 (5-15) BUN 4 L (7-18) mg/dL Creatinine 0.8 (0.7-1.3) mg/dL Est Cr Clr Drug Dosing 127.99 mL/min Estimated GFR (MDRD) > 60 (>60) mL/min BUN/Creatinine Ratio 5.0 L (14-18) Glucose 92 (74-106) mg/dL Calcium 8.4 L (8.5-10.1) mg/dL Magnesium 2.3 (1.8-2.4) mg/dl Total Bilirubin 0.3 (0.2-1.0) mg/dL AST 12 L (15-37) U/L ALT 11 L (16-63) U/L Alkaline Phosphatase 66 (46-116) U/L Total Protein 6.9 (6.4-8.2) g/dl Albumin 2.8 L (3.4-5.0) g/dl Globulin 4.1 gm/dL Albumin/Globulin Ratio 0.7 L (1-2) Med Orders - Current: Current Medications Hydrocodone Bitart/Acetaminophen ([place] 325-5 Mg) 1 tab PO Q4H PRN PRN Reason: Pain Last Admin: 05/29/18 09:30 Dose: 1 tab Carbamazepine (Tegretol Tab) 400 mg PO BID [facility] Last Admin: 05/29/18 09:04 Dose: 400 mg Carvedilol (Coreg) 6.25 mg PO BID [facility] Last Admin: 05/29/18 09:00 Dose: 6.25 mg Duloxetine HCl (Cymbalta) 30 mg PO QPM [facility] Last Admin: 05/28/18 17:29 Dose: 30 mg Duloxetine HCl (Cymbalta) 60 mg PO QAM [facility] Last Admin: 05/29/18 09:06 Dose: 60 mg Hydromorphone HCl (Dilaudid) 1 mg IVPUSH Q4H PRN PRN Reason: Pain (severe 7-10) Piperacillin Sod/Tazobactam (Sod 4.5 gm/ Sodium Chloride) 100 mls @ 25 mls/hr IV Q8H [facility] Last Admin: 05/29/18 05:28 Dose: 25 mls/hr Lamotrigine (Lamotrigine) 100 mg PO BID [facility] Last Admin: 05/29/18 08:59 Dose: 100 mg Magnesium Hydroxide (Milk Of Magnesia) 30 ml PO DAILY PRN PRN Reason: Constipation Nicotine (Habitrol) 21 mg TRDERM DAILY PRN PRN Reason: Other Ondansetron HCl (Zofran) 4 mg IVPUSH Q8H PRN PRN Reason: Nausea Pantoprazole Sodium (Protonix) 40 mg PO BID [facility] Last Admin: 05/29/18 09:01 Dose: 40 mg Potassium Chloride (Klor-Con 10) 10 meq PO TID [facility] Last Admin: 05/29/18 09:02 Dose: 10 meq Potassium Chloride (Klor-Con M20) 40 meq PO TID [facility] Stop: 05/30/18 09:01 Last Admin: 05/29/18 09:03 Dose: 40 meq Sodium Chloride (Saline Flush) 10 ml FLUSH ASDIRECTED PRN PRN Reason: Keep Vein Open Last Admin: 05/23/18 06:25 Dose: 10 ml Temazepam (Restoril) 7.5 mg PO BEDTIME [facility] Last Admin: 05/28/18 21:30 Dose: 7.5 mg Discontinued Medications Hydrocodone Bitart/Acetaminophen ([place] 325-5 Mg) 1 tab PO Q6H PRN PRN Reason: Pain (moderate 4-6) Last Admin: 05/27/18 08:10 Dose: 1 tab Bupivacaine HCl (Marcaine 0.5%) Confirm Administered Dose 30 ml .ROUTE .STK-MED ONE Stop: 05/24/18 13:04 Last Admin: 05/24/18 13:54 Dose: 12.5 ml Fentanyl (Sublimaze) Confirm Administered Dose 250 mcg .ROUTE .STK-MED ONE Stop: 05/24/18 13:02 Fentanyl (Sublimaze) Confirm Administered Dose 100 mcg .ROUTE .STK-MED ONE Stop: 05/24/18 14:59 Glycopyrrolate () Confirm Administered Dose 1 mg .ROUTE .STK-MED ONE Stop: 05/24/18 15:30 Hydromorphone HCl (Dilaudid) 1 mg IVPUSH ONETIME ONE Stop: 05/23/18 05:48 Last Admin: 05/23/18 06:21 Dose: 1 mg Hydromorphone HCl (Dilaudid) 1 mg IVPUSH ONETIME ONE Stop: 05/23/18 08:01 Last Admin: 05/23/18 08:43 Dose: 1 mg Hydromorphone HCl (Dilaudid) 1 mg IVPUSH ONETIME ONE Stop: 05/23/18 10:47 Last Admin: 05/23/18 10:57 Dose: 1 mg Hydromorphone HCl (Dilaudid) 0.2 - 0.6 mg IVPUSH Q2H PRN PRN Reason: Pain Last Admin: 05/23/18 15:23 Dose: 0.6 mg Hydromorphone HCl (Dilaudid) 1 mg IVPUSH Q2H PRN PRN Reason: Pain Last Admin: 05/25/18 15:53 Dose: 1 mg Hydromorphone HCl (Dilaudid) Confirm Administered Dose 0.5 mg .ROUTE .STK-MED ONE Stop: 05/24/18 14:58 Hydromorphone HCl (Dilaudid) Confirm Administered Dose 0.5 mg .ROUTE .STK-MED ONE Stop: 05/24/18 14:58 Hydromorphone HCl (Dilaudid) 1 mg IVPUSH Q1H PRN PRN Reason: pain Stop: 05/26/18 16:00 Last Admin: 05/26/18 09:22 Dose: 1 mg Sodium Chloride (Normal Saline) 1,000 mls @ 999 mls/hr IV ONETIME [facility] Last Admin: 05/23/18 06:23 Dose: 999 mls/hr Potassium Chloride 10 meq/ (Premix) 100 mls @ 50 mls/hr IV ASDIRECTED ONE Stop: 05/23/18 09:19 Last Admin: 05/23/18 07:29 Dose: 50 mls/hr Levofloxacin/Dextrose 750 mg/ (Premix) 150 mls @ 100 mls/hr IV ONETIME ONE Stop: 05/23/18 12:16 Last Admin: 05/23/18 11:03 Dose: 100 mls/hr Piperacillin Sod/Tazobactam (Sod 4.5 gm/ Sodium Chloride) 100 mls @ 25 mls/hr IV Q8H [facility] Last Admin: 05/24/18 11:34 Dose: Not Given Potassium Chloride 10 meq/ (Premix) 100 mls @ 100 mls/hr IV ONETIME ONE Stop: 05/23/18 12:07 Last Admin: 05/23/18 11:19 Dose: 100 mls/hr Piperacillin Sod/Tazobactam (Sod 4.5 gm/ Sodium Chloride) 100 mls @ 25 mls/hr IV Q8H [facility] Sodium Chloride (Normal Saline) 1,000 mls @ 100 mls/hr IV ASDIRECTED [facility] Last Admin: 05/25/18 05:58 Dose: 100 mls/hr Potassium Chloride 10 meq/ (Premix) 100 mls @ 100 mls/hr IV Q1H [facility] Stop: 05/24/18 02:59 Last Admin: 05/24/18 03:12 Dose: 75 mls/hr Sodium Chloride (Normal Saline) 500 mls @ 50 mls/hr IV ASDIRECTED [facility] Stop: 05/24/18 03:00 Potassium Chloride 10 meq/ (Premix) 100 mls @ 100 mls/hr IV Q1H [facility] Stop: 05/24/18 12:14 Last Admin: 05/24/18 12:06 Dose: 100 mls/hr Magnesium Sulfate 2 gm/ Premix 50 mls @ 25 mls/hr IV ONETIME ONE Stop: 05/24/18 13:59 Last Admin: 05/24/18 13:09 Dose: 25 mls/hr Lidocaine HCl (Xylocaine-Mpf 1%) Confirm Administered Dose 4 mls @ as directed .ROUTE .STK-MED ONE Stop: 05/24/18 13:02 Potassium Chloride 10 meq/ (Premix) 100 mls @ 100 mls/hr IV Q1H [facility] Stop: 05/24/18 17:59 Last Admin: 05/24/18 17:27 Dose: 100 mls/hr Piperacillin Sod/Tazobactam (Sod 4.5 gm/ Sodium Chloride) 100 mls @ 200 mls/hr IV ONETIME ONE Stop: 05/24/18 14:14 Last Admin: 05/24/18 16:51 Dose: Not Given Lactated Ringer's (Ringers, Lactated) Confirm Administered Dose 1,000 mls @ as directed .ROUTE .STK-MED ONE Stop: 05/24/18 15:03 Lactated Ringer's (Ringers, Lactated) Confirm Administered Dose 1,000 mls @ as directed .ROUTE .[facility] ONE Stop: 05/24/18 15:22 Potassium Chloride 10 meq/ (Premix) 100 mls @ 100 mls/hr IV Q1H [facility] Stop: 05/25/18 18:14 Last Admin: 05/25/18 20:11 Dose: 100 mls/hr Lactated Ringer's (Ringers, Lactated) 1,000 mls @ 100 mls/hr IV ASDIRECTED [facility] Last Admin: 05/26/18 03:58 Dose: 100 mls/hr Lactated Ringer's (Ringers, Lactated) 1,000 mls @ 75 mls/hr IV ASDIRECTED [facility] Last Admin: 05/27/18 18:36 Dose: 75 mls/hr Potassium Chloride 10 meq/ (Premix) 100 mls @ 100 mls/hr IV Q1H [facility] Stop: 05/27/18 18:29 Last Admin: 05/27/18 21:04 Dose: 100 mls/hr Magnesium Sulfate 4 gm/ Premix 100 mls @ 25 mls/hr IV ONETIME ONE Stop: 05/28/18 21:59 Last Admin: 05/28/18 17:29 Dose: 25 mls/hr Magnesium Sulfate 4 gm/ Premix 100 mls @ 25 mls/hr IV ONETIME ONE Stop: 05/28/18 15:14 Last Admin: 05/28/18 11:39 Dose: 25 mls/hr Iopamidol (Isovue-370 (76%)) 50 ml IVPUSH ONETIME ONE Stop: 05/29/18 10:25 Last Admin: 05/29/18 10:27 Dose: 50 ml Lidocaine/Epinephrine (Xylocaine 1% With Epinephrine 1:100,000) Confirm Administered Dose 20 ml .ROUTE .[facility] ONE Stop: 05/24/18 13:04 Last Admin: 05/24/18 13:54 Dose: 12.5 ml Magnesium Hydroxide (Milk Of Magnesia) 30 ml PO DAILY [facility] Last Admin: 05/27/18 08:10 Dose: 30 ml Metoclopramide HCl (Reglan) 10 mg IVPUSH ONETIME ONE Stop: 05/23/18 10:47 Last Admin: 05/23/18 10:54 Dose: 10 mg Midazolam HCl (Versed 1 Mg/Ml) Confirm Administered Dose 2 mg .ROUTE .STK-MED ONE Stop: 05/24/18 13:02 Neostigmine Methylsulfate (Neostigmine) Confirm Administered Dose 5 mg .ROUTE .STK-MED ONE Stop: 05/24/18 15:30 Ondansetron HCl (Zofran) 4 mg IVPUSH ONETIME ONE Stop: 05/23/18 05:48 Last Admin: 05/23/18 06:20 Dose: 4 mg Ondansetron HCl (Zofran) Confirm Administered Dose 4 mg .ROUTE .STK-MED ONE Stop: 05/24/18 13:01 Potassium Chloride (Klor-Con M20) 40 meq PO ONETIME ONE Stop: 05/24/18 08:10 Last Admin: 05/24/18 08:37 Dose: 40 meq Potassium Chloride (Potassium Chloride Solution) 10 meq PO TID [facility] Last Admin: 05/27/18 08:10 Dose: 10 meq Propofol (Diprivan 20 Ml) Confirm Administered Dose 200 mg .ROUTE .STK-MED ONE Stop: 05/24/18 13:01 Rocuronium [place] (Zemuron) Confirm Administered Dose 50 mg .ROUTE .STK-MED ONE Stop: 05/24/18 13:01 Rocuronium [place] (Zemuron) Confirm Administered Dose 50 mg .ROUTE .STK-MED ONE Stop: 05/24/18 13:58 - Problem List Review Problem List Initiated/Reviewed/Updated: Yes - My Orders Last 24 Hours: Active Orders 24 hr Category Date Time Status Ready for Discharge [RC] PER UNIT ROUTINE Care 05/29/18 11:51 Ordered Fluoro Up To 1Hr [CR] Routine Exams 05/29/18 10:00 Taken EPINEPHrine [Epipen] Med 05/29/18 11:51 Ordered 1 pen IM ASDIRECTED PRN Eszopiclone [Lunesta] Med 05/29/18 21:00 Ordered 3 mg PO BEDTIME Fluticasone Propionate Med 05/29/18 21:00 Ordered 1 spray NASBOTH BID Polyethylene Glycol 3350 [MiraLAX] Med 05/29/18 11:51 Ordered 1 tbsp PO DAILY PRN Potassium Chloride [Klor-Con M20] Med 05/28/18 15:00 Active 40 meq PO TID Sucralfate [Carafate] Med 05/29/18 17:00 Ordered 1 gm PO QIDACANDBED acetaZOLAMIDE [Diamox] Med 05/29/18 21:00 Ordered 375 mg PO BID atorvaSTATin Med 05/30/18 09:00 Ordered 20 mg PO DAILY busPIRone Med 05/29/18 21:00 Ordered 10 mg PO BID Medication Orders Hydrocodone Bitart/Acetaminophen ([place] 325-5 Mg) 1 tab PO Q4H PRN PRN Reason: Pain Last Admin: 05/29/18 09:30 Dose: 1 tab Admin: 05/29/18 05:28 Dose: 1 tab Admin: 05/29/18 00:48 Dose: 1 tab Admin: 05/28/18 19:42 Dose: 1 tab Admin: 05/28/18 15:05 Dose: 1 tab Admin: 05/28/18 09:53 Dose: 1 tab Admin: 05/28/18 06:39 Dose: 1 tab Admin: 05/28/18 02:01 Dose: 1 tab Admin: 05/27/18 21:19 Dose: 1 tab Admin: 05/27/18 17:19 Dose: 1 tab Admin: 05/27/18 13:08 Dose: 1 tab Carbamazepine (Tegretol Tab) 400 mg PO BID [facility] Last Admin: 05/29/18 09:04 Dose: 400 mg Admin: 05/28/18 21:31 Dose: 400 mg Admin: 05/28/18 08:24 Dose: 400 mg Admin: 05/27/18 21:12 Dose: 400 mg Admin: 05/27/18 08:10 Dose: 400 mg Admin: 05/26/18 20:25 Dose: 400 mg Admin: 05/26/18 09:26 Dose: 400 mg Admin: 05/25/18 20:08 Dose: 400 mg Admin: 05/25/18 09:15 Dose: 400 mg Admin: 05/24/18 20:50 Dose: 400 mg Admin: 05/24/18 09:47 Dose: Admin: 05/23/18 20:49 Dose: 400 mg Carvedilol (Coreg) 6.25 mg PO BID [facility] Last Admin: 05/29/18 09:00 Dose: 6.25 mg Admin: 05/28/18 21:31 Dose: 6.25 mg Admin: 05/28/18 08:21 Dose: 6.25 mg Admin: 05/27/18 21:12 Dose: 6.25 mg Admin: 05/27/18 08:10 Dose: 6.25 mg Admin: 05/26/18 20:26 Dose: 6.25 mg Admin: 05/26/18 09:24 Dose: 6.25 mg Admin: 05/25/18 20:10 Dose: 6.25 mg Admin: 05/25/18 09:16 Dose: 6.25 mg Admin: 05/24/18 20:49 Dose: 6.25 mg Admin: 05/24/18 10:00 Dose: 6.25 mg Admin: 05/23/18 20:49 Dose: 6.25 mg Duloxetine HCl (Cymbalta) 30 mg PO QPM [facility] Last Admin: 05/28/18 17:29 Dose: 30 mg Admin: 05/27/18 17:20 Dose: 30 mg Admin: 05/26/18 18:04 Dose: 30 mg Admin: 05/25/18 17:14 Dose: 30 mg Admin: 05/24/18 18:17 Dose: 30 mg Admin: 05/23/18 18:02 Dose: 30 mg Duloxetine HCl (Cymbalta) 60 mg PO QAM [facility] Last Admin: 05/29/18 09:06 Dose: 60 mg Admin: 05/28/18 08:20 Dose: 60 mg Admin: 05/27/18 08:10 Dose: 60 mg Admin: 05/26/18 09:24 Dose: 60 mg Admin: 05/25/18 09:15 Dose: 60 mg Admin: 05/24/18 09:46 Dose: Hydromorphone HCl (Dilaudid) 1 mg IVPUSH Q4H PRN PRN Reason: Pain (severe 7-10) Piperacillin Sod/Tazobactam (Sod 4.5 gm/ Sodium Chloride) 100 mls @ 25 mls/hr IV Q8H [facility] Last Admin: 05/29/18 05:28 Dose: 25 mls/hr Infusion: 05/29/18 01:33 Dose: 25 mls/hr Admin: 05/28/18 21:33 Dose: 25 mls/hr Infusion: 05/28/18 17:24 Dose: 25 mls/hr Admin: 05/28/18 13:24 Dose: 25 mls/hr Infusion: 05/28/18 10:11 Dose: 25 mls/hr Admin: 05/28/18 06:11 Dose: 25 mls/hr Infusion: 05/28/18 03:03 Dose: 25 mls/hr Admin: 05/27/18 23:03 Dose: 25 mls/hr Infusion: 05/27/18 17:06 Dose: 25 mls/hr Admin: 05/27/18 13:06 Dose: 25 mls/hr Infusion: 05/27/18 12:21 Dose: 25 mls/hr Admin: 05/27/18 08:21 Dose: 25 mls/hr Infusion: 05/27/18 01:53 Dose: 25 mls/hr Admin: 05/26/18 21:53 Dose: 25 mls/hr Infusion: 05/26/18 18:03 Dose: 25 mls/hr Admin: 05/26/18 14:03 Dose: 25 mls/hr Infusion: 05/26/18 09:04 Dose: 25 mls/hr Admin: 05/26/18 05:04 Dose: 25 mls/hr Infusion: 05/26/18 01:18 Dose: 25 mls/hr Admin: 05/25/18 21:18 Dose: 25 mls/hr Infusion: 05/25/18 18:03 Dose: 25 mls/hr Admin: 05/25/18 14:03 Dose: 25 mls/hr Infusion: 05/25/18 09:14 Dose: 25 mls/hr Admin: 05/25/18 05:14 Dose: 25 mls/hr Infusion: 05/25/18 01:03 Dose: 25 mls/hr Admin: 05/24/18 21:03 Dose: 25 mls/hr Lamotrigine (Lamotrigine) 100 mg PO BID [facility] Last Admin: 05/29/18 08:59 Dose: 100 mg Admin: 05/28/18 21:31 Dose: 100 mg Admin: 05/28/18 08:21 Dose: 100 mg Admin: 05/27/18 21:11 Dose: 100 mg Admin: 05/27/18 08:10 Dose: 100 mg Admin: 05/26/18 20:25 Dose: 100 mg Admin: 05/26/18 09:24 Dose: 100 mg Admin: 05/25/18 20:10 Dose: 100 mg Admin: 05/25/18 09:20 Dose: 100 mg Admin: 05/24/18 20:49 Dose: 100 mg Admin: 05/24/18 09:46 Dose: Admin: 05/23/18 20:49 Dose: 100 mg Magnesium Hydroxide (Milk Of Magnesia) 30 ml PO DAILY PRN PRN Reason: Constipation Nicotine (Habitrol) 21 mg TRDERM DAILY PRN PRN Reason: Other Ondansetron HCl (Zofran) 4 mg IVPUSH Q8H PRN PRN Reason: Nausea Pantoprazole Sodium (Protonix) 40 mg PO BID [facility] Last Admin: 05/29/18 09:01 Dose: 40 mg Admin: 05/28/18 21:32 Dose: 40 mg Admin: 05/28/18 08:24 Dose: 40 mg Admin: 05/27/18 21:11 Dose: 40 mg Admin: 05/27/18 08:10 Dose: 40 mg Admin: 05/26/18 20:26 Dose: 40 mg Admin: 05/26/18 09:24 Dose: 40 mg Admin: 05/25/18 20:09 Dose: 40 mg Admin: 05/25/18 09:20 Dose: 40 mg Admin: 05/24/18 20:49 Dose: 40 mg Admin: 05/24/18 09:47 Dose: Admin: 05/23/18 20:49 Dose: 40 mg Potassium Chloride (Klor-Con 10) 10 meq PO TID [facility] Last Admin: 05/29/18 09:02 Dose: 10 meq Admin: 05/28/18 21:30 Dose: 10 meq Admin: 05/28/18 15:05 Dose: 10 meq Admin: 05/28/18 08:20 Dose: 10 meq Admin: 05/27/18 21:12 Dose: 10 meq Admin: 05/27/18 14:31 Dose: 10 meq Potassium Chloride (Klor-Con M20) 40 meq PO TID [facility] Stop: 05/30/18 09:01 Last Admin: 05/29/18 09:03 Dose: 40 meq Admin: 05/28/18 21:29 Dose: 40 meq Admin: 05/28/18 15:05 Dose: 40 meq Sodium Chloride (Saline Flush) 10 ml FLUSH ASDIRECTED PRN PRN Reason: Keep Vein Open Last Admin: 05/23/18 06:25 Dose: 10 ml Temazepam (Restoril) 7.5 mg PO BEDTIME [facility] Last Admin: 05/28/18 21:30 Dose: 7.5 mg Admin: 05/27/18 21:10 Dose: 7.5 mg - Plan Plan (Free Text/Narrative):: doing well pulled the JONATHAN and looked at the cholangiogam will place a clamp on the cholecystostomy tube will discharge today dictated
--- NOTE | 2018-05-29 12:03 | CR ---
Cholangiogram: Contrast injected through indwelling catheter. Percutaneous catheter terminates within the gallbladder. Contrast initially outlining the gallbladder with further injection contrast seen within the CHD and CBD. Filling defects are seen within the gallbladder compatible with gallstones. No filling defects are seen within the CHD or CBD. Due to preferential flow into the CHD and CBD, no intrahepatic biliary opacification occurred. Impression: 1. Gallstones. 2. No evidence of stone within the CHD or CBD. Diagnostic code #3
[2018-05-29 12:44] VITALS: BP 140/77
[2018-05-29] MEDS ORDERED: Sucralfate 1 GM Tab PO SCH (17:00)
[2018-05-29] MEDS ORDERED: acetaZOLAMIDE 250 MG Tab PO SCH (21:00)
[2018-05-29] MEDS ORDERED: busPIRone 5 MG Tab PO SCH (21:00)
[2018-05-29] MEDS ORDERED: ESZOPICLONE 3 MG PO SCH (21:00)
[2018-05-29] MEDS ORDERED: Simvastatin 20 MG Tab PO SCH (21:00)
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
--- NOTE | 2018-05-30 14:24 | PCM.SN ---
- Free Text/Narrative Note: Discharge summary addendum: Home health skilled nurse to educate and assist with draining intraperitoneal drain, teach and monitor for signs and symptoms of infection around the drain site, pain, and medications. Occupational therapy to see patient to assist with weakness and do home safety evaluation. Physical therapy to assist patient with strengthening due to weakness. He is homebound due to weakness and poor appetite and also difficult to leave home without assist of one. Primary care physician is Dr. Acosta.
== END 2018-05-29 14:35 | disposition home or self-care (01) | DRG 446 ==
LOC: JD.ED 05:11 → JD.MS 11:51 → OBSVTOIN 05-25 12:10 → JD.MS 05-25 12:15
PROVIDERS: ADMIT Student in an Organized Health Care Education/Training Program; ATTEND Student in an Organized Health Care Education/Training Program
PROC: BF101ZZ Fluoroscopy of Bile Ducts using Low Osmolar Contrast (ICD-10-PCS; principal; 2018-05-24)
PROC: 0F9440Z Drainage of Gallbladder with Drainage Device, Percutaneous Endoscopic Approach (ICD-10-PCS; principal; 2018-05-24)
DX: K80.00 Calculus of gallbladder with acute cholecystitis without obstruction (principal); E87.6 Hypokalemia; G62.9 Polyneuropathy, unspecified; F41.9 Anxiety disorder, unspecified; F32.9 Major depressive disorder, single episode, unspecified; R56.9 Unspecified convulsions; D50.9 Iron deficiency anemia, unspecified; E83.42 Hypomagnesemia; E88.81 Metabolic syndrome and other insulin resistance; E66.9 Obesity, unspecified; Z68.32 Body mass index [BMI] 32.0-32.9, adult; Z98.84 Bariatric surgery status; F17.210 Nicotine dependence, cigarettes, uncomplicated; Z88.1 Allergy status to other antibiotic agents; R10.11 Right upper quadrant pain; Z88.0 Allergy status to penicillin; R35.0 Frequency of micturition; R11.2 Nausea with vomiting, unspecified; R11.14 Bilious vomiting; Z88.8 Allergy status to other drugs, medicaments and biological substances; Z79.899 Other long term (current) drug therapy; Z86.73 Personal history of transient ischemic attack (TIA), and cerebral infarction without residual deficits; Z87.820 Personal history of traumatic brain injury
CPT/HCPCS: 36415 ×3; 74176; 76705; 80048 ×3; 80053; 81001; 82977; 83735 ×2; 84100 ×2; 85025 ×3; 86140; 96361; 96365; 96366; 96367; 96375; 96376; 99285; A9270 ×17; J1170 ×22; J1956; J2001; J2250; J2405 ×2; J2543 ×5; J2704; J2710; J2765; J3010 ×2; J3475; J3480 ×15; J3490; J7030 ×5; J7040 ×5; J7120 ×2; 00790; 76000; 76000-26; 80051; 94761; 97116-GP; 97162-GP; 97530-GP; Q9967

== ENCOUNTER 2018-07-10 14:43 | Emergency (ER) | payer MEDICARE, MEDICAID ==
[2018-07-10 15:03] VITALS: BP 127/76
--- NOTE | 2018-07-10 15:41 | EDM.PDOC ---
ED HPI GENERAL MEDICAL PROBLEM - General Chief Complaint: Abdominal Pain Stated Complaint: GALLBLADDER ISSUES Time Seen by Provider: 07/10/18 14:53 Source of Information: Reports: Patient, Family (), Provider (Dr. Gotti), RN Notes Reviewed History Limitations: Reports: No Limitations - History of Present Illness INITIAL COMMENTS - FREE TEXT/NARRATIVE: Medical records indicate that the patient went to the operating room on 2018 with the intention of undergoing a laparoscopic cholecystectomy, however, the gallbladder was found to be so inflamed that anatomic landmarks could not be adequately identified, therefore a cholecystotomy tube was placed, with the intention of the tube remaining in place until this July. The patient states that when he bent over in the shower this past Monday, 2018, he did not pull on the tube, but he developed sudden onset sharp right lower quadrant abdominal pain, and that he has had pain to the site of the ostomy tube ever since. Further, the patient states that he has not had any drainage from his ostomy tube over the past [address] Gotti earlier today, who encouraged the patient to come to the ED for evaluation. No recent fever, nausea, vomiting, constipation, or diarrhea. The patient's PCP is Dr. Dioni Acosta. His Neurologist is Dr. Oswaldo Diaz. Right Upper Abdomen Pain Score (Numeric/FACES): 7 - Related Data Allergies Allergy/AdvReac Type Severity Reaction Status Date / Time celecoxib Allergy Hives Verified 07/10/18 14:54 insect venom Allergy Hives Verified 07/10/18 14:54 NSAIDS (Non-Steroidal Allergy Hives Verified 07/10/18 14:54 Anti-Inflamma Penicillins Allergy Hives Verified 07/10/18 14:54 pregabalin [From Lyrica] Allergy Hives Verified 07/10/18 14:54 tramadol Allergy Hives Verified 07/10/18 14:54 zolpidem Allergy Hives Verified 07/10/18 14:54 gabapentin AdvReac Seizure Verified 07/10/18 14:54 Home Meds: Home Meds Eszopiclone [Lunesta] 3 mg PO BEDTIME 09/30/15 [History] Carvedilol 6.25 mg PO BIDMEALS 12/20/17 [History] DULoxetine [Cymbalta] 60 mg PO QAM 12/20/17 [History] atorvaSTATin [Lipitor] 20 mg PO DAILY 12/20/17 [History] carBAMazepine [TEGretol XR] 400 mg PO BID 12/20/17 [History] lamoTRIgine [Lamotrigine] 150 mg PO BID 12/20/17 [History] acetaZOLAMIDE [Acetazolamide] 375 mg PO BID 01/20/18 [History] DULoxetine [Cymbalta] 30 mg PO QPM 05/23/18 [History] Diclofenac Sodium [Voltaren 1% Gel] 2 - 4 gm TOP QID PRN 05/23/18 [History] EPINEPHrine [Epipen 2-Sharath] 1 pen IM ASDIRECTED PRN 05/23/18 [History] Fluticasone Propionate [Flonase] 1 spray NASBOTH BID 05/23/18 [History] busPIRone [Buspar] 10 mg PO BID 05/23/18 [History] Potassium Chloride [Klor-Con M20] 20 meq PO BID #28 tab.er.prt 05/29/18 [Rx] Past Medical History HEENT History: Reports: Allergic Rhinitis Cardiovascular History: Reports: High Cholesterol, Hypertension Respiratory History: Reports: Other (See Below) (Pleural effusions related to a splenic abscess) Gastrointestinal History: Reports: GERD, PUD Musculoskeletal History: Reports: Other (See Below) (TICC tear) Neurological History: Reports: Brain Injury (TBI September 2015), Headaches, Chronic (since TBI), Neuropathy, Peripheral (right ulnar), Seizure Psychiatric History: Reports: Anxiety, Depression Endocrine/Metabolic History: Reports: Obesity/BMI 30+ Hematologic History: Reports: Anemia, Iron Deficiency - Infectious Disease History Infectious Disease History: Reports: Chicken Pox - Past Surgical History HEENT Surgical History: Reports: Adenoidectomy, LASIK, Tonsillectomy Respiratory Surgical History: Reports: Thoracentesis, Thoracotomy GI Surgical History: Reports: Bariatric Procedure (sleeve gastrectomy gastric bypass around 2003), Colonoscopy (x 5 or 6), EGD (x around 6), Hernia Repair/ Other, Other (See Below) (Exploratory laparoscopy with cholecystoscopy tube placement, 05/24/2018) Dermatological Surgical History: Reports: Other (See Below) (Excess abdominal wall skin removal) - History Comment History Comment: History of TBI in 2015, on anti-seizure medication. Social & Family History - Family History Family Medical History: Noncontributory HEENT: Reports: None Cardiac: Reports: None Respiratory: Reports: None GI: Reports: None : Reports: None OBGYN: Reports: None Musculoskeletal: Reports: None Neurological: Reports: None Psychiatric: Reports: None Endocrine/Metabolic: Reports: None Hematologic: Reports: None Other Hematologic Family History: Iron deficiency. Immunologic: Reports: None Dermatologic: Reports: None Oncologic: Reports: None - Tobacco Use Smoking Status *Q: Current Every Day Smoker Years of Tobacco use: 20 Packs/Tins Daily: 1 - Caffeine Use Caffeine Use: Reports: Soda, Tea Caffeine Use Comment: Soda daily - Recreational Drug Use Recreational Drug Use: No ED ROS GENERAL - Review of Systems Review Of Systems: ROS reveals no pertinent complaints other than HPI. ED EXAM, GI/ABD - Physical Exam Exam: See Below Exam Limited By: No Limitations General Appearance: Alert, WD/WN, No Apparent Distress Eyes: Bilateral: Normal Appearance, EOMI Ears: Normal External Exam, Hearing Grossly Normal Nose: Normal Inspection Throat/Mouth: Normal Inspection, Normal Lips, Normal Voice, No Airway Compromise Head: Atraumatic, Normocephalic Neck: Normal Inspection, Full Range of Motion Respiratory/Chest: No Respiratory Distress, Lungs Clear, Normal Breath Sounds, No Accessory Muscle Use Cardiovascular: Normal Peripheral Pulses, Regular Rate, Rhythm, No Gallop, No JVD, No Murmur, No Rub GI/Abdominal Exam: Normal Bowel Sounds, Soft, No Organomegaly, No Distention, No Abnormal Bruit, No Mass, Tender (mild, generalized, non-focal), Other (Obese) (Male) Exam: Deferred Rectal (Males) Exam: Deferred Back Exam: Normal Inspection, Full Range of Motion, NT Extremities: Normal Inspection, Normal Range of Motion, Normal Capillary Refill Neurological: Alert, Oriented, Normal Cognition, No Motor/Sensory Deficits Psychiatric: Normal Affect Skin Exam: Warm, Dry, Intact, Normal Color, No Rash Course - Vital Signs Last Recorded V/S: Last Vital Signs Temp 36.3 C 07/10/18 15:01 Pulse 63 07/10/18 15:01 Resp 16 07/10/18 15:01 BP 127/76 07/10/18 15:01 Pulse Ox 96 07/10/18 15:01 - Re-Assessments/Exams Free Text/Narrative Re-Assessment/Exam: 07/10/18 15:[address] Marcial, general surgeon chemist instrumentation, at 15:30. He felt that after this length of time, the patient would likely have a draining fistula, even if the cholecystostomy tube were not present, but if it is not draining, then perhaps the fistula has become disrupted. He recommended that we obtain an ultrasound of the right upper quadrant to evaluate for a fluid collection, then call him back. 07/10/18 17:18 Ultrasound of the right upper quadrant is read by Dr. Canela as: 1. Uncertain position of the cholecystostomy tube. Contrast injection would be needed to further evaluate tube position. 2. Gallbladder wall thickening. 3. Presumed fluid along the cholecystostomy tract. 07/10/18 17:25 Ultrasound results discussed with Dr. Marcial at 17:21. He feels that the patient can go home. Because of a fistula, the patient probably doesn't even need the cholecystostomy tube anymore. He can have an elective cholecystectomy at some point in the future, but an emergency cholecystectomy is not indicated. 07/10/18 17:28 The above was discussed with Dr. Gotti at 17:27. He agrees with Dr. Marcial's assessment, and would like the patient to follow-up with him in about 2 weeks, to plan for an outpatient cholecystectomy. 07/10/18 17:33 The above was discussed with the patient and his mother. They tell me that the patient already has an appointment to see Dr. Gotti next 07/18/2018. Departure - Departure Time of Disposition: 17:33 Disposition: Home, Self-Care 01 Condition: Good Clinical Impression: Cholecystostomy tube dysfunction - Discharge Information *PRESCRIPTION DRUG MONITORING PROGRAM REVIEWED*: Not Applicable *COPY OF PRESCRIPTION DRUG MONITORING REPORT IN PATIENT LES: Not Applicable Referrals: Oswaldo Diaz MD [Ordering Only Provider] - Dioni Acosta MD [Primary Care Provider] - Edvin Gotti MD [Physician] - Forms: ED Department Discharge Additional Instructions: You were seen in the emergency room for lack of drainage from her cholecystostomy tube, with associated pain. Workup in the ER included an ultrasound of your upper right abdomen, which did not find a fluid collection. Your case was discussed with the surgeons Dr. Manuelito Marcial and Edvin Gotti. 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 Both agree that an emergency gallbladder removal is not needed. Follow-up with Dr. Gotti at your previously scheduled appointment next 07/18/2018, at which time arrangements can be made for you to undergo an elective gallbladder removal. If any other problems, please do not hesitate to return to the ER.
--- NOTE | 2018-07-10 16:57 | US ---
Limited abdominal ultrasound: Multiple real-time images of the gallbladder obtained. Gallbladder wall is thickened. Patient has had previous cholecystostomy tube placed. This tube is poorly visualized and position cannot be definitely confirmed on this study. Slight fluid is seen presumably along the tract of this tube. Impression: 1. Uncertain position of cholecystostomy tube. Contrast injection would be needed to further evaluate tube position. 2. Gallbladder wall thickening. 3. Presumed fluid along the cholecystostomy tract. Diagnostic code #3
== END 2018-07-10 17:50 | disposition home or self-care (01) ==
LOC: JD.ED 14:43
DX: N99.518 Other cystostomy complication (principal); F17.210 Nicotine dependence, cigarettes, uncomplicated; K21.9 Gastro-esophageal reflux disease without esophagitis; F41.9 Anxiety disorder, unspecified; F32.9 Major depressive disorder, single episode, unspecified; I10 Essential (primary) hypertension; E78.00 Pure hypercholesterolemia, unspecified; Z79.899 Other long term (current) drug therapy; Z88.0 Allergy status to penicillin; Z88.8 Allergy status to other drugs, medicaments and biological substances; Z88.1 Allergy status to other antibiotic agents; Z91.09 Other allergy status, other than to drugs and biological substances
CPT/HCPCS: 76705; 76705-26; 99282; 99284-25